=== PATIENT | male | born 1960 | race Caucasian/White ===

== ENCOUNTER 2020-03-03 22:06 | Inpatient (IN) | payer OTHER, SELFPAY ==
[~2020-03-03] VITALS: Ht 167.6 cm; Wt 86.2 kg
--- NOTE | 2020-03-03 22:11 | NUR ---
BIBA TO BED 10
--- NOTE | 2020-03-03 22:15 | NUR ---
RECEIVED A 59/M FROM EMS FOR A MALFUNCTIONING SUPRAPUBIC CATHETER. UPON ASSESSMENT CATHETER IS NOT DRAINING--UNABLE TO FLUSH. PT HAS EXTENSIVE MEDICAL HISTORY AND IS TRACH TO 02 5LP. TRACH INTACT WITH NO COMPLICATIONS.
--- NOTE | 2020-03-03 22:19 | NUR ---
T-piece to o2; setting 6LPM
[2020-03-03 22:20] VITALS: BP 133/83
[2020-03-03] MEDS ORDERED: SODIUM CHLORIDE FLUSH 10 ML SYR IVF ONE (22:45)
--- NOTE | 2020-03-03 22:45 | NUR ---
PER DR FRYE, ATTEMPT REED INSERTION. INSERTION UNSUCCESSFUL. DR FRYE MADE UNSUCCESSFUL ATTEMPT WELL.
[2020-03-03 23:30] LABS: BASOPHILS % (AUTO) 0.5 % (0.0-2.0); EOSINOPHILS # (AUTO) 0.3 K/uL (0-0.4); HEMATOCRIT 45.1 % (36-52); HEMOGLOBIN 14.5 g/dL (12.0-18.0); LYMPHOCYTES # (AUTO) 1.4 K/uL (2.0-11.5); LYMPHOCYTES % (AUTO) 16.3 % (20.5-51.1); MEAN CORPUSCULAR HEMOGLOBIN 29 pg (27-31); MEAN CORPUSCULAR HGB CONC 32 g/dL (33-37); MEAN CORPUSCULAR VOLUME 90.1 fL (80-94); MONOCYTES # (AUTO) 0.8 K/uL (0.8-1.0); MONOCYTES % (AUTO) 9.5 % (1.7-9.3); NEUTROPHILS # (AUTO) 5.9 K/uL (1.8-7.7); NEUTROPHILS % (AUTO) 69.7 % (42.2-75.2); PLATELET COUNT (AUTO) 226 K/uL (140-450); RED BLOOD CELL COUNT(AUTO) 5.01 MIL/uL (4.20-6.10); WHITE BLOOD COUNT (AUTO) 8.5 K/uL (4.8-10.8)
[2020-03-03 23:44] LABS: ALBUMIN 3.3 g/dL (3.4-5.0); ANION GAP 15.2 (8-16); CREATININE 0.9 mg/dL (0.6-1.3); POTASSIUM 4.2 mmol/L (3.5-5.1); PROTHROMBIN TIME 10.6 secs (10.8-13.4); TOTAL BILIRUBIN 0.4 mg/dL (0.0-1.0)
--- NOTE | 2020-03-04 | NUR ---
PT REMAINS IN BED -- NO DISTRESS. ATTATCHED TO CONTINOUS CARDIAC MONITORING.
[2020-03-04] MEDS ORDERED: NACL 0.9% 1,000 ML IV SCH (00:23)
[2020-03-04] MEDS ORDERED: LORazepam 2 MG/ML VIAL IM/IVP PRN (00:25)
[2020-03-04] MEDS ORDERED: DOCUSATE SODIUM 100 MG GELCAP PO PRN (00:25)
[2020-03-04] MEDS ORDERED: ONDANSETRON 4 MG/2 ML VIAL IM/IVP PRN (00:25)
[2020-03-04] MEDS ORDERED: ACETAMINOPHEN 325 MG TAB PO PRN (00:25)
[2020-03-04] MEDS ORDERED: MAG SULF 2000 MG/WATER PREMIX 50 ML IV PRN (00:25)
[2020-03-04] MEDS ORDERED: ZOLPIDEM 5 MG TAB PO PRN (00:25)
[2020-03-04] MEDS ORDERED: MORPHINE SULFATE 2 MG/ML SYR IVP PRN (00:25)
[2020-03-04] MEDS ORDERED: POTASSIUM CHLORIDE 10 MEQ TABER PO PRN (00:25)
[2020-03-04] MEDS ORDERED: HYDROcodone/APAP 5/325 MG 1 TAB TAB PO PRN (00:25)
[2020-03-04] MEDS ORDERED: BACL10TA4 GT (00:46)
[2020-03-04] MEDS ORDERED: CHLO118S1 MT (00:46)
[2020-03-04] MEDS ORDERED: BISA-218 RC (00:46)
[2020-03-04] MEDS ORDERED: MAGN400T7 GT (00:46)
[2020-03-04] MEDS ORDERED: [UNRECOGNIZED DRUG - CODE] GT (00:46)
[2020-03-04] MEDS ORDERED: CHOL2400 GT (00:46)
[2020-03-04] MEDS ORDERED: FISH10005 GT (00:46)
[2020-03-04] MEDS ORDERED: NA P133E RC (00:46)
[2020-03-04] MEDS ORDERED: ASPI-1884 GT (00:46)
[2020-03-04] MEDS ORDERED: MAGN400S60 GT (00:46)
[2020-03-04] MEDS ORDERED: METO25TA GT (00:46)
[2020-03-04] MEDS ORDERED: DOCU-300 GT (00:46)
[2020-03-04] MEDS ORDERED: MULT-1328 GT (00:46)
[2020-03-04] MEDS ORDERED: CALC-1271 GT (00:46)
[2020-03-04] MEDS ORDERED: OMEP40EC14 GT (00:47)
[2020-03-04] MEDS ORDERED: ZINC220C28 GT (00:47)
[2020-03-04] MEDS ORDERED: ACET-2619 GT (00:47)
[2020-03-04] MEDS ORDERED: NUTR887L GT (00:47)
[2020-03-04] MEDS ORDERED: SENN-72 GT (00:47)
[2020-03-04] MEDS ORDERED: SIMV10TA1 GT (00:47)
[2020-03-04] MEDS ORDERED: ASCO-5 GT (00:47)
--- NOTE | 2020-03-04 02:00 | NUR ---
PT REMAINS IN BED WITH NO DISTRESS. IV INFUSING NORMAL SALINE AT ORDERED RATE OF 60ML/HR. IV IS PATENT. ALL NEEDS MET AT THIS TIME.
--- NOTE | 2020-03-04 04:02 | NUR ---
0400 VITALS COMPLETED. PT REMAINS FREE FROM PAIN/DISTRESS. SUPRAPUBIC CATHETER REMAINS INTACT WITH NO OUTPUT. UROLOGY TO CONSULT THIS AM. OTHERWISE IN STABLE CONDITION.
--- NOTE | 2020-03-04 07:05 | NUR ---
TRACH TO COOL MIST ---PT TRACKS WITH EYES MD AT BEDSIDE
--- NOTE | 2020-03-04 07:10 | NUR ---
REPORT TO PREETI CASTILLO. ALL CARE TRANSFERRED.
[2020-03-04 07:16] LABS: BASOPHILS % (AUTO) 0.3 % (0.0-2.0); EOSINOPHILS # (AUTO) 0.2 K/uL (0-0.4); EOSINOPHILS % (AUTO) 2.1 % (0.0-4.0); HEMATOCRIT 48.3 % (36-52); HEMOGLOBIN 15.9 g/dL (12.0-18.0); LYMPHOCYTES # (AUTO) 0.9 K/uL (2.0-11.5); LYMPHOCYTES % (AUTO) 10.5 % (20.5-51.1); MEAN CORPUSCULAR HEMOGLOBIN 30 pg (27-31); MEAN CORPUSCULAR HGB CONC 33 g/dL (33-37); MEAN CORPUSCULAR VOLUME 89.9 fL (80-94); MONOCYTES # (AUTO) 0.7 K/uL (0.8-1.0); MONOCYTES % (AUTO) 7.8 % (1.7-9.3); NEUTROPHILS # (AUTO) 6.9 K/uL (1.8-7.7); NEUTROPHILS % (AUTO) 79.3 % (42.2-75.2); PLATELET COUNT (AUTO) 204 K/uL (140-450); RED BLOOD CELL COUNT(AUTO) 5.37 MIL/uL (4.20-6.10); WHITE BLOOD COUNT (AUTO) 8.7 K/uL (4.8-10.8)
--- NOTE | 2020-03-04 07:34 | NUR ---
covid swab collected
[2020-03-04 07:47] LABS: ANION GAP 11.3 (8-16); CARBON DIOXIDE 27.9 mmol/L (21-32); CHOL/HDL RATIO 3.9 (1-4.5); CREATININE 0.9 mg/dL (0.6-1.3); MAGNESIUM 1.8 mg/dL (1.8-2.4); PHOSPHORUS 3.5 mg/dL (2.5-4.9); POTASSIUM 4.2 mmol/L (3.5-5.1); THYROID STIMULATING HORMONE 1.08 uIU/mL (0.34-3.74)
--- NOTE | 2020-03-04 08:27 | NUR ---
Dr. Powlel is evaluating the patient at bedside.
--- NOTE | 2020-03-04 08:30 | NUR ---
turned to left for midline relief
--- NOTE | 2020-03-04 08:38 | NUR ---
WITH UROLOGY CHANGED SUPRAPUBIC REED 16Fr. AT BEDSIDE WITH NO INCIDENT.
--- NOTE | 2020-03-04 09:40 | NUR ---
pt's Mariia called requesting to speak with her 's doctor [phone]
[2020-03-04] MEDS ORDERED: ACETAMINOPHEN 650 MG/20.3 ML UDC GT PRN (10:25)
[2020-03-04] MEDS ORDERED: bisacodyL 10 MG SUPP RC PRN (10:25)
[2020-03-04] MEDS ORDERED: SODIUM PHOSPHATE 118 ML ENEM RC PRN (10:25)
[2020-03-04] MEDS ORDERED: SENNA 8.6 MG TAB GT PRN (10:25)
[2020-03-04] MEDS ORDERED: MAGNESIUM HYDROXIDE 2400 MG/30 ML UDC GT PRN (10:25)
[2020-03-04 11:00] VITALS: BP 134/82
[2020-03-04] MEDS ORDERED: DOCUSATE 100 MG/10 ML UDC PO PRN (11:15)
--- NOTE | 2020-03-04 11:53 | NUR ---
report given to Maciel BLEVINS
--- NOTE | 2020-03-04 12:06 | NUR ---
1200ml urine out emptied larry bag---report given to ems
--- NOTE | 2020-03-04 12:08 | NUR ---
Patient to be transferred to [facility]. Is being transferred due to . Receiving facility has accepting physician and available space. ER physician has signed transfer form. Patient or responsible republican has agreed to transfer and signed form. Patient belongings inventoried and will be sent with patient. Copy of nursing notes, lab reports, EKG, Physicians Orders and X-rays to be sent with patient. Report called to at receiving facility. ambulance service has been called for transfer. ETA is .
[2020-03-04] MEDS ORDERED: VITAMIN D3 GT SCH (13:00)
[2020-03-04] MEDS ORDERED: CALCIUM CARB/VIT-D 500 MG/200 IU 1 TAB PO SCH (13:00)
[2020-03-04] MEDS ORDERED: CALCIUM CITRATE GT SCH (13:00)
[2020-03-04] MEDS ORDERED: BACLOFEN 10 MG TAB GT SCH (13:00)
[2020-03-04] MEDS ORDERED: DOCUSATE 100 MG/10 ML UDC PO SCH (21:00)
[2020-03-04] MEDS ORDERED: METOPROLOL 25 MG TAB GT SCH (21:00)
[2020-03-04] MEDS ORDERED: CHLORHEXIDINE GLUCONATE MT SCH (21:00)
[2020-03-04] MEDS ORDERED: SIMVASTATIN 10 MG TAB GT SCH (21:00)
[2020-03-04] MEDS ORDERED: NON-FORMULARY ITEM (Amino Acids/Protein Hydrolys (Pro-Stat Sugar Free Liquid) 30 ML) GT SCH (21:00)
[2020-03-05] MEDS ORDERED: LANSOPRAZOLE 30 MG CAPDR GT SCH (06:30)
[2020-03-05 08:09] LABS: T4 (THYROXINE) 9.5 ug/dL (4.5-12.0)
[2020-03-05] MEDS ORDERED: ASCORBIC ACID 500 MG TAB GT SCH (09:00)
[2020-03-05] MEDS ORDERED: OMEGA GT SCH (09:00)
[2020-03-05] MEDS ORDERED: CHOLECALCIFEROL U GT SCH (09:00)
[2020-03-05] MEDS ORDERED: NON-FORMULARY ITEM (Multivitamin with Minerals (Multivitamins with Minerals) 1 TAB) GT SCH (09:00)
[2020-03-05] MEDS ORDERED: ASPIRIN 81 MG TAB.CHEW GT SCH (09:00)
[2020-03-05] MEDS ORDERED: ZINC SULF 220 MG CAP GT SCH (09:00)
[2020-03-05] MEDS ORDERED: FATTY ACIDS GT SCH (09:00)
[2020-03-05] MEDS ORDERED: NON-FORMULARY ITEM (Omeprazole 1 CAP) GT SCH (09:00)
[2020-03-05] MEDS ORDERED: MAGNESIUM OXIDE 400 MG TAB GT SCH (09:00)
[2020-03-05] MEDS ORDERED: MULTIVITAMIN/MINERALS 1 TAB GT SCH (09:00)
[2020-03-05] MEDS ORDERED: FISH OIL GT SCH (09:00)
[2020-03-05] MEDS ORDERED: CHOLECALCIFEROL 1,000 IU TAB GT SCH (09:00)
== END 2020-03-04 12:05 | DRG 468 ==
LOC: MED 22:06 → MTU 03-04 00:36
PROC: 0TPB70Z Removal of Drainage Device from Bladder, Via Natural or Artificial Opening (ICD-10-PCS; principal; 2020-03-04)
PROC: 0T9B70Z Drainage of Bladder with Drainage Device, Via Natural or Artificial Opening (ICD-10-PCS; 2020-03-04)
DX: N13.9 Obstructive and reflux uropathy, unspecified (principal); L89.154 Pressure ulcer of sacral region, stage 4; G82.50 Quadriplegia, unspecified; N31.2 Flaccid neuropathic bladder, not elsewhere classified; J96.10 Chronic respiratory failure, unspecified whether with hypoxia or hypercapnia; G93.1 Anoxic brain damage, not elsewhere classified; N17.0 Acute kidney failure with tubular necrosis; E86.0 Dehydration; Z20.828 Contact with and (suspected) exposure to other viral communicable diseases
CPT/HCPCS: 36415; 71045; 80048; 80053; 82150; 83036; 83690; 83735; 83880; 84100; 84436; 84443; 84484; 85025; 85610; 85730; 99285; J1644; Q0092; U0003-CS

== ENCOUNTER 2021-08-10 13:37 | Inpatient (IN) | payer MEDICAID, SELFPAY ==
[~2021-08-10] VITALS: Ht 172.7 cm; Wt 95.3 kg
[2021-08-10] MEDS: NACL 0.9% 1,000 ML IV SCH (00:59)
[~2021-08-10 13:37] MED LIST: ACET-2619 GT; ASCO-5 GT; ASPI-1749 GT; BACL10TA4 GT; BISA-218 RC; CALC-1271 GT; CHLO118S1 MT; CHOL2400 GT; DOCU-300 GT; FISH10005 GT; MAGN400S60 GT; MAGN400T7 GT; METO25TA GT; MULT-1328 GT; NA P133E RC; NUTR887L GT; OMEP40EC23 GT; SENN-72 GT; SIMV10TA1 GT; ZINC220C28 GT; [UNRECOGNIZED DRUG - CODE] GT
--- NOTE | 2021-08-10 13:59 | NUR ---
BIBA TO ER BED 11
[2021-08-10 14:04] VITALS: BP 93/62
[2021-08-10] MEDS ORDERED: NACL 0.9% 1,000 ML IV SCH (14:20)
[2021-08-10 14:54] LABS: BASOPHILS # (AUTO) 0.1 K/uL (0.00-0.22); BASOPHILS % (AUTO) 1.6 % (0.0-2.0); EOSINOPHILS % (AUTO) 0.1 % (0.0-4.0); HEMATOCRIT 47.3 % (36-52); HEMOGLOBIN 15.8 g/dL (12.0-18.0); LYMPHOCYTES # (AUTO) 0.3 K/uL (2.0-11.5); LYMPHOCYTES % (AUTO) 6.2 % (20.5-51.1); MEAN CORPUSCULAR HEMOGLOBIN 29 pg (27-31); MEAN CORPUSCULAR HGB CONC 33 g/dL (33-37); MEAN CORPUSCULAR VOLUME 87.6 fL (80-94); MONOCYTES # (AUTO) 0.3 K/uL (0.8-1.0); MONOCYTES % (AUTO) 7.2 % (1.7-9.3); NEUTROPHILS # (AUTO) 3.6 K/uL (1.8-7.7); NEUTROPHILS % (AUTO) 84.9 % (42.2-75.2); PLATELET COUNT (AUTO) 99 K/uL (140-450); RED CELL DISTRIBUTION WIDTH 15.9 % (11.6-13.7); WHITE BLOOD COUNT (AUTO) 4.3 K/uL (4.8-10.8)
--- NOTE | 2021-08-10 15:01 | NUR ---
61 Y MALE BIBA FROM [facility] DUE TO ELEVATED HR AND TACHYPNEA. PER EMS PT HR UPON ARRIVAL WAS AROUND 150. PMH: RESP FAILURE, ANOXIC BRAIN DAMAGE, DM, HTN, HLD, QUADRIPLEGIA ALLERGIES: SEE LIST
[2021-08-10 15:25] LABS: ALBUMIN 2.7 g/dL (3.4-5.0); ANION GAP 15.1 (8-16); CARBON DIOXIDE 23.9 mmol/L (21-32); CREATININE 0.8 mg/dL (0.6-1.3); TOTAL BILIRUBIN 0.5 mg/dL (0.0-1.0)
[2021-08-10] MEDS ORDERED: NACL 0.9% 1,000 ML IV ONE (15:35)
[2021-08-10] MEDS ORDERED: GENTAMICIN 120 MG in DEXTROSE 5% 100 ML IV ONE (16:10)
[2021-08-10] MEDS ORDERED: GENTAMICIN 80 MG/2 ML VIAL ONE (16:30)
--- NOTE | 2021-08-10 16:40 | NUR ---
PT RESTING IN BED, VISIBLE EQUAL RISE AND FALL OF CHEST, VSS, WILL CONTINUE TO MONITOR.
--- NOTE | 2021-08-10 17:50 | NUR ---
OBTAINED CT CONSENT, PLACED IN PT CHART.
--- NOTE | 2021-08-10 18:57 | NUR ---
PT RESTING IN BED, VSS, WILL CONTINUE TO MONITOR.
--- NOTE | 2021-08-10 19:28 | NUR ---
GAVE REPORT TO PREETI GARCIA. TRANSFER OF CARE AT THIS TIME.
--- NOTE | 2021-08-10 20:10 | NUR ---
GAVE PERMISSION FOR TREATMENT AND ADMISSION, PREETI COREAS AND CASIE GIVEN VERBAL OVER THE PHONE.
--- NOTE | 2021-08-10 20:28 | NUR ---
PT RETURN FROM CT
--- NOTE | 2021-08-10 20:50 | NUR ---
pt suctioned at this time. minimal bloody exudates at this time. VSS on 4lpm humidifier
[2021-08-10] MEDS ORDERED: ACETAMINOPHEN 325 MG TAB PO PRN (21:45)
[2021-08-10] MEDS ORDERED: guaiFENesin DM 200/20 MG-10 ML 10 ML UDC PO PRN (21:45)
[2021-08-10] MEDS ORDERED: ZOLPIDEM 5 MG TAB PO PRN (21:45)
[2021-08-10] MEDS ORDERED: DOCUSATE SODIUM 100 MG GELCAP PO PRN (21:45)
[2021-08-10] MEDS ORDERED: ONDANSETRON 4 MG/2 ML VIAL IM/IVP PRN (21:45)
[2021-08-10] MEDS ORDERED: POTASSIUM CHLORIDE 10 MEQ TABER PO PRN (21:45)
[2021-08-10] MEDS ORDERED: GENTAMICIN PER PHARMACY MC PRN (21:50)
[2021-08-10 23:36] LABS: CHOL/HDL RATIO 2.8 (1-4.5); FREE T4 (FREE THYROXINE) 0.96 ng/dL (0.76-1.46); MAGNESIUM 1.7 mg/dL (1.8-2.4); THYROID STIMULATING HORMONE 0.95 uIU/mL (0.34-3.74)
[2021-08-10 23:39] LABS: PROTHROMBIN TIME 10.4 secs (10.8-13.4)
--- NOTE | 2021-08-10 23:39 | NUR ---
NAD at this time. remains on 4lmp TBAR with humidifier.
[2021-08-11] MEDS: GENTAMICIN 120 MG in DEXTROSE 5% 100 ML IV SCH ×4 (00:59→21:04)
--- NOTE | 2021-08-11 02:38 | NUR ---
NAd at this time. RT at bedside for routine care.
--- NOTE | 2021-08-11 04:52 | NUR ---
provided cooling measures such as ice packs for patient. patient tolerating well.
[2021-08-11 07:07] LABS: BASOPHILS # (AUTO) 0.2 K/uL (0.00-0.22); HEMATOCRIT 45.7 % (36-52); HEMOGLOBIN 15.2 g/dL (12.0-18.0); LYMPHOCYTES # (AUTO) 0.4 K/uL (2.0-11.5); LYMPHOCYTES % (AUTO) 12.6 % (20.5-51.1); MEAN CORPUSCULAR HEMOGLOBIN 29 pg (27-31); MEAN CORPUSCULAR HGB CONC 33 g/dL (33-37); MEAN CORPUSCULAR VOLUME 87.7 fL (80-94); MONOCYTES # (AUTO) 0.3 K/uL (0.8-1.0); MONOCYTES % (AUTO) 9.6 % (1.7-9.3); NEUTROPHILS # (AUTO) 2.2 K/uL (1.8-7.7); NEUTROPHILS % (AUTO) 71.8 % (42.2-75.2); PLATELET COUNT (AUTO) 83 K/uL (140-450); RED BLOOD CELL COUNT(AUTO) 5.21 MIL/uL (4.20-6.10); RED CELL DISTRIBUTION WIDTH 15.7 % (11.6-13.7); WHITE BLOOD COUNT (AUTO) 3.1 K/uL (4.8-10.8)
--- NOTE | 2021-08-11 07:22 | NUR ---
Report and continuation of care received from PREETI Abel.
--- NOTE | 2021-08-11 07:22 | NUR ---
REPORT GIVEN TO PAT ÁLVAREZ
--- NOTE | 2021-08-11 07:40 | NUR ---
Rectal temperature 102.9. Patient with two large bowel movements; teo care performed; diaper changed. Tylenol suppository 650mg given.
[2021-08-11 07:48] LABS: ANION GAP 16.4 (8-16); CARBON DIOXIDE 20.3 mmol/L (21-32); CREATININE 0.8 mg/dL (0.6-1.3); POTASSIUM 4.7 mmol/L (3.5-5.1)
[2021-08-11] MEDS: ACETAMINOPHEN 650 MG SUPP RC PRN (07:57)
--- NOTE | 2021-08-11 07:59 | NUR ---
Called Abril for report, states recontact in 15 minutes
--- NOTE | 2021-08-11 07:59 | NUR ---
Edilberto junior in [facility] - 08/11/21 at 0759 by [email or web address] Emelyn Gomes for report, states to give 15minutes at this time.
--- NOTE | 2021-08-11 08:30 | NUR ---
Abril made aware of repeat rectal temperature 101.7, AccuChek 171
--- NOTE | 2021-08-11 08:40 | NUR ---
Patient will be admitted to care of Dr. Fried. Admited to Telemetry. Will go to room 106A. Belongings list completed. Report to PREETI Samuels.
[2021-08-11 08:45] VITALS: BP 119/71
--- NOTE | 2021-08-11 08:45 | NUR ---
PT BROUGHT ONTO UNIT VIA GURNEY, ACCOMPANIED BY ER STAFF AND TRANSPORTER. PT IN NONVERBAL, HOWEVER, EYES WILL TRAC AND OPEN SPONTANEOUSLY. PT HAS TRACH TO T BAR IN PLACE. WITH 02 @ 6L. 02 SAT AT 98%. PT HAS G TUBE IN PLACE. PT RECEIVES MEDS AND NOURISHMENT VIA G TUBE. PT HAS IV TO L AC, 20G. INFUSING NS @ 60. SKIN IS WARM AND DRY. PT WAS ADMITTED WITH A RECTAL TEMPT OF 101.9 FROM ER. COOLING MEASURES IN PLACE. PT HAS SACRAL WOUND. CALL LIGHT WITHIN REACH. ALL SAFETY MEASURES IN PLACE. WILL CONTINUE TO MONITOR.
--- NOTE | 2021-08-11 08:45 | NUR ---
Patient's Plan of Care was discussed and reviewed with STEREOTYPER APPRENTICE: FANI DE LA TORRE
[2021-08-11] MEDS: ASPIRIN 81 MG TAB.CHEW GT SCH ×2 (09:00→21:00)
[2021-08-11] MEDS: METOPROLOL 25 MG TAB GT SCH ×2 (09:00→21:04)
[2021-08-11] MEDS: PANTOPRAZOLE 40 MG TABEC PO SCH (09:00)
--- NOTE | 2021-08-11 09:15 | NUR ---
RE-ASSESSED PT TEMPT. CURRENT TEMPT 100.3. CONTINUE WITH COOLING MEASURES.
--- NOTE | 2021-08-11 11:38 | NUR ---
REVIEWED PULMONARY STATUS WITH DR. BUCKY CASTILLO: DUONEB HHN Q6 AND Q4PRN FOR SOB/WHEEZE; OXYGEN SATURATION GREATER THAN 90%; SPUTUM CULTURE C&S
[2021-08-11 12:00] VITALS: BP 109/73
[2021-08-11] MEDS ORDERED: ALBUTEROL SULFATE/IPRATROPIU 3 ML SOL IH PRN (12:45)
[2021-08-11] MEDS: ALBUTEROL SULFATE/IPRATROPIU 3 ML SOL IH SCH ×2 (13:16→19:16)
--- NOTE | 2021-08-11 13:16 | NUR ---
PLACED PATIENT ON A COOL AEROSOL AT AN FIO2 OF 35%/8 LPM TO AN INLINE SUCTION CATHETER/TRACHEOSTOMY TUBE GOOD CHEST RISE DEEP TRACHEAL SUCTION FOR COPIOUS THICK YELLOW WITH BLOOD TINGE SECRETIONS SPUTUM SAMPLE OBTAINED FORWARDED TO LAB FANI/DOMINICK NOTIFIED OF COL AEROSOL FIO2 AND COLLECTION OF SPUTUM SAMPLE
--- NOTE | 2021-08-11 13:20 | NUR ---
DID ROUNDS ON PT. PT IN BED SLEEPING AT THIS TIME. RESPIRATIONS ARE EVEN AND UNLABORED. PT CONTINUES ON 6L 02, WITH 02 SAT AT 97%. NO SIGNS OF DISTRESS NOTED. CALL LIGHT WITHIN REACH. ALL SAFETY MEASURES IN PLACE. WILL CONTINUE TO MONITOR.
--- NOTE | 2021-08-11 13:30 | NUR ---
OSVALDO IV MEDICATION ADMINISTERED PER MD ORDER.
[2021-08-11] MEDS: NACL 0.9% 1,000 ML IV SCH (14:33)
[2021-08-11 16:00] VITALS: BP 128/70
--- NOTE | 2021-08-11 16:09 | NUR ---
RECEIVED RECOMMENDATION FROM DIETITIAN. VITAL @60ML/HR. START WITH 20ML/HR AND INCREASE BY 20Q4H. WATER FLUSH AT 100Q6H. WILL BEGIN GT FEEDING. WILL CONTINUE TO MONITOR.
--- NOTE | 2021-08-11 16:27 | NUR ---
PATIENT HAS BEEN SCREENED AND CATEGORIZED HIGH NUTRITION RISK. PATIENT WILL BE SEEN WITHIN 1-2 DAYS OF ADMISSION. RECEIVED CONSULT AND REFERRAL FOR TUBE FEEDING [address]
--- NOTE | 2021-08-11 17:10 | NUR ---
G TUBE FEEDING STARTED. PER DIETARY RECOMMENDATION, VITAL AF @ 60ML/HR WITH H20 FLUSH AT 100 Q6H. START FEEDING AT 20 ML/HR AND INCREASE BY 20ML/HR Q4H.
--- NOTE | 2021-08-11 19:00 | NUR ---
PT IN BED RESTING AT THIS TIME. PT ON TRACH TO T BAR, 6L. WITH 02 SAT AT 95%. NO SIGNS OF DISTRESS NOTED. PT HAS G TUBE IN PLACE, G TUBE INTACT AND PATENT. PT TOLERATING GT FEEDING WELL. NO SIGNS OF PAIN OR DISCOMFORT. ALL NEEDS MET THROUGHOUT SHIFT. PT IS STABLE. WILL ENDORSE TO MERCERIZING RANGE FEEDER NURSE.
--- NOTE | 2021-08-11 19:20 | NUR ---
RECEIVED PT REPORT FROM AM NURSE FOR CONTINUITY OF CARE. PT ON TRACH TO T BAR 6L O2 . O2 SAT 95% NO S/S OF DISTRESS NOTED. PT HAS G-TUBE IN PLACE, INTACT NO RESIDUAL. G-TUBE FEEDING VITAL AF RUNNING AT 20CC/HR. PT TOLERATING G-TUBE FEEDING WELL.. TURNED AND REPOSITIONED Q2HRS PER PROTOCOL. NO SIGNS OF DISTRESS OR DISCOMFORT. ALL NEEDS MET.. PT IS STABLE.
[2021-08-11] MEDS: SIMVASTATIN 10 MG TAB GT SCH (21:04)
--- NOTE | 2021-08-11 21:20 | NUR ---
HS MEDS GIVEN VIA G-TUBE. TOLERATED WELL. GENTAMYCIN IVPB HUNG INFUSING INTO LAC 20G IV. 0.9NS IVF RUNNING AT 60CC/HR PER MD ORDER. SUCTIONED TRACH OF MUCUS PLUG. TURNED AND REPOSITIONED. ALL SAFETY MEASURES IN PLACE. CONTINUE TO OBSERVE.
--- NOTE | 2021-08-11 21:25 | NUR ---
2100 HEPARIN NOT GIVEN PLATELET COUNT 83 TOO LOW.
[2021-08-11] MEDS ORDERED: VANCOMYCIN PER PHARMACY MC PRN (22:20)
[2021-08-11] MEDS: MEROPENEM 1,000 MG in NACL 0.9% 50 ML IV SCH (22:45)
--- NOTE | 2021-08-11 23:45 | NUR ---
MERREM IVPB NOT AVAIABLE.
[2021-08-12] MEDS ORDERED: VANCOMYCIN 1GM/DEXT 5% PREMIX 200 ML IV SCH
[2021-08-12] MEDS: ALBUTEROL SULFATE/IPRATROPIU 3 ML SOL IH SCH ×4 (01:09→20:30)
--- NOTE | 2021-08-12 01:24 | NUR ---
0100 INLINE HHNTX GIVEN. TRACH CARE DONE. WATER CHANGED. PT IS ON 35% COOL AEROSOL
[2021-08-12] MEDS ORDERED: MEROPENEM 1,000 MG VIAL IV ONE (05:47)
[2021-08-12 06:22] LABS: BASOPHILS % (AUTO) 0.4 % (0.0-2.0); HEMATOCRIT 42.8 % (36-52); HEMOGLOBIN 14.3 g/dL (12.0-18.0); LYMPHOCYTES # (AUTO) 0.7 K/uL (2.0-11.5); LYMPHOCYTES % (AUTO) 17.4 % (20.5-51.1); MEAN CORPUSCULAR HEMOGLOBIN 29 pg (27-31); MEAN CORPUSCULAR HGB CONC 33 g/dL (33-37); MEAN CORPUSCULAR VOLUME 87.7 fL (80-94); MONOCYTES # (AUTO) 0.4 K/uL (0.8-1.0); MONOCYTES % (AUTO) 10.1 % (1.7-9.3); NEUTROPHILS # (AUTO) 2.7 K/uL (1.8-7.7); NEUTROPHILS % (AUTO) 72.1 % (42.2-75.2); PLATELET COUNT (AUTO) 79 K/uL (140-450); RED BLOOD CELL COUNT(AUTO) 4.88 MIL/uL (4.20-6.10); RED CELL DISTRIBUTION WIDTH 15.4 % (11.6-13.7); WHITE BLOOD COUNT (AUTO) 3.8 K/uL (4.8-10.8)
--- NOTE | 2021-08-12 06:40 | NUR ---
PT'S HR [address] TO ATRIAL FIB TO 2:[address] BROWN CALLED. TORB TRANSFER PT TO ICU AND START HGIM ON KARIN MAURICIO. CHRISTINA BOND RUNNER RN AWARE. NO ICU BED AVAILABLE. O6:[address] BROWN BACK INFORMED HIM OF SITUATION. DR BROWN ORDERED TATAL 20MG CARDIZEM IVP CHECK BACK WITH HIM IF HR DOESN'T COME DOWN.
--- NOTE | 2021-08-12 06:45 | NUR ---
PT GIVEN CARDIAZEM SLOW IVP. ALSO CARDIOLOGY CONSULT ORDERED WITH DR JOSEPH MURRAY.
[2021-08-12] MEDS ORDERED: DILTIAZEM 25 MG/5 ML VIAL IVP ONE (06:49)
[2021-08-12] MEDS ORDERED: DILTIAZEM 25 MG/5 ML VIAL IVP SCH ×2 (06:50→07:28)
[2021-08-12] MEDS: NACL 0.9% 1,000 ML IV SCH (07:00)
--- NOTE | 2021-08-12 07:00 | NUR ---
PT'S HR DROPPED FROM THE 180'S DOWN TO 115TO 120'S AVERAGING 126. DR BROWN AWARE. ORDERED 5MG METROPALOL IVP Q 6HRS PRN HR> 130'S. TRIED TO PUT ORDER IN COMPUTER. FEPT GETTING THIS MED NOT IN STOCK. CALLED PHARMACY TO FOLLOW UP. PHARMACIST COULD NOT GIVE A TIME TO EXPECT MED. DUE TO SHORTAGE OF MANY MEDICINES FROM [facility]. ALL SAFETY MEASURES IN PLACE. ENDORSE TO DAY SHIFT TO FOLLOW UP.
--- NOTE | 2021-08-12 07:02 | NUR ---
SATURATION 89% ON A COOL AEROSOL TO TRACH AT 35% POST HHN THERAPY INCREASED FIO2 TO40% DEEP TRACHEAL SUCTION FOR MODERATE THIN YELLOW SECRETIONS WITH SMALL SCATTERED BLOOD CLOTS
--- NOTE | 2021-08-12 07:20 | NUR ---
REWCEIVED ENDORSEMENT FROM FOREIGN LANGUAGE INSTRUCTOR NURSE.
[2021-08-12 07:24] LABS: ANION GAP 14.1 (8-16); CARBON DIOXIDE 21.5 mmol/L (21-32); CREATININE 0.8 mg/dL (0.6-1.3); POTASSIUM 3.6 mmol/L (3.5-5.1)
[2021-08-12] MEDS: MEROPENEM 1,000 MG in NACL 0.9% 50 ML IV SCH ×3 (07:30→21:09)
--- NOTE | 2021-08-12 08:00 | NUR ---
Patient's Plan of Care was discussed and reviewed with PARKS WORKER: MARGARETH BORJAS
[2021-08-12 08:59] VITALS: BP 187/108
[2021-08-12 09:07] LABS: T4 (THYROXINE) 7.2 ug/dL (4.5-12.0)
--- NOTE | 2021-08-12 09:35 | NUR ---
WOUND CARE EVALUATION NOTE: SKIN ASSESSMENT DONE WITH THIS 61 Y/O PT ADMITTED TO [facility] WITH INITIAL DX OF TACHYCARDIA AND UTI . PAST MEDICAL HISTORY: CVA, CHRONIC UTI, OBSTRUCTIVE UROPATHY, CHRONIC RESPIRATORY FAILURE, DYSPHAGIA AND DIABETES. ALL ABOVE INFORMATION OBTAINED FROM ADMISSION H&P. PT. ADMITTED WITH PRESSURE INJURY TO SACRALCOCCYX AND NOTED ON THE INTER-FACILITY TRANSFER REPORT. PT IS AWAKE, NON-VERBAL, SKIN IS COLD AND DRY TO TOUCH PT. WITH FEVER AND COOLING MEASURES IN PLACE. CHRONIC. SUPRAPUBIC CATH WITH SEB COLOR URINE OUTPUT. PT. WITH LARGE SOFT BM. BILATERAL DORSAL PEDAL PULSES PRESENT AND NORMAL, THICKEN FUNGAL NAILS OBSERVED. INTEGUMENTARY: -SUPRAPUBIC CATH BARTOLO-STOMA SKIN DRY AND INTACT -GT SITE BARTOLO-STOMA SKIN DRY AND INTACT -SACRALCOCCYX PRESSURE INJURY STAGE 4 WITH [id number]. WOUND BED PINK, 90% GRANULATING, 10% YELLOW SLOUGH, MINIMAL SEROUS DRAINAGE, NO ODOR. BARTOLO-WOUND HEALING THIN SCAR TISSUE WITH MULTIPLE EROSIONS AND DTI THE ENTIRE AFFECTED AREA [id number] RECOMMENDATIONS: -WOUND CULTURE TO SACRALCOCCYX -CLEANSE SACRALCOCCYX WOUND WITH NS AND GAUZE, PAT DRY, APPLY THERAHONEY GEL TO WOUND BED WITH ADAPTIC DRESSING AND APPLY THIN LAYER OF Z GUARD TO BARTOLO-WOUND SKIN COVER WITH ISLAND DRESSING Q DAY AND PRN WITH SOILING. -APPLY SKIN PREP TO BILATERAL HEELS AND WOODS SUPERINTENDENT -APPLY HEEL PROTECTOR TO BOTH HEELS -OFFLOAD BILATERAL HEELS BY PLACING PILLOWS UNDER CALVES UNLESS OTHERWISE CONTRAINDICATED -PRESSURE REDISTRIBUTION SURFACE THERAPY -TURN AND REPOSITION Q2H, OFFLOAD SACRALCOCCYX BY TURNING RIGHT AND LEFT -CONTINUE TO FOLLOW RD RECOMMENDATIONS
[2021-08-12] MEDS: PANTOPRAZOLE 40 MG TABEC PO SCH (10:09)
[2021-08-12] MEDS: ASPIRIN 81 MG TAB.CHEW GT SCH (10:09)
[2021-08-12] MEDS: METOPROLOL 25 MG TAB GT SCH (10:09)
--- NOTE | 2021-08-12 10:16 | NUR ---
GIVEN GT MEDICATION ORDER TOLERATED WELL BLOOD PRESSURE IS 121/76 AND HR 117. O2 SAT AT 90 TO 92%
[2021-08-12] MEDS: VANCOMYCIN HCL 1.25 GM in DEXTROSE 5% 250 ML IV SCH ×2 (10:20→21:09)
--- NOTE | 2021-08-12 10:29 | NUR ---
LEFT MESSAGE TO DR. LYN COVERING FOR DR. BROWN THAT METOPROLOL IVP 5 MG PRN IS OUT OF STOCK
[2021-08-12 12:00] VITALS: BP 121/68
--- NOTE | 2021-08-12 12:12 | NUR ---
08/12/21 RD INITIAL ASSESSMENT COMPLETED PLEASE REFER TO NUTRITION ASSESSMENT UNDER CARE ACTIVITY FOR ESTIMATED NUTRITIONAL NEEDS. 1. RECOMMENDED VITAL AF 1.2 @ 60 ML/HR -WATER FLUSH: 100 ML Q6H -START WITH 20 ML/HR AND INCREASE BY 20 ML Q4H -RECOMMENDED NAYE BID PER PROTOCOL -WITH NAYE BID, PT WILL RECEIVE 1888 KCAL AND 113 GM PROTEIN MEETING 90% ESTIMATED KCAL AND 100% ESTIMATED PROTEIN NEEDS 2. MONITOR FOR EDEMA 3. RD TO FOLLOW-UP 3-5 DAYS, MODERATE RISK (DOWNGRADED D/T PT TOLERATING TF) [address]
--- NOTE | 2021-08-12 12:30 | NUR ---
PT GIVEN COOLING MEASURE FOR [id number] EFFECTIVE AFTER 15 MIN TEMP 98.8
[2021-08-12] MEDS: THERAHONEY GEL 42.5 GM TP SCH (13:00)
[2021-08-12] MEDS: Z-GUARD PASTE TP SCH (13:00)
--- NOTE | 2021-08-12 14:18 | NUR ---
CALLED AND ASKING HOW THE AND ALSO ASKING IF DR. BROWN OR DR. LYN CAN UPDATE HIS BROTHER CHRISTIAN VILLARREAL LEFT MESSAGE TO DR. LYN.
[2021-08-12] MEDS ORDERED: POTASSIUM CHLORIDE 20% 40 MEQ/15 ML UDC GT SCH (15:06)
[2021-08-12] MEDS ORDERED: MAG SULF 2000 MG/WATER PREMIX 50 ML IV SCH (15:30)
[2021-08-12] MEDS: DILTIAZEM 30 MG TAB PO SCH ×2 (15:39→21:10)
[2021-08-12 16:00] VITALS: BP 114/66
[2021-08-12] MEDS: ACETAMINOPHEN 650 MG SUPP RC PRN (17:19)
--- NOTE | 2021-08-12 17:20 | NUR ---
TYLENOL SUPPOSITORY GIVEN FOR TEMP. 101.7 AND COOLING MEASURE ALSO GIVEN.
--- NOTE | 2021-08-12 17:30 | NUR ---
INFORM REGARDING PT TEMPERATURE WHEN HE ASSES PT.
--- NOTE | 2021-08-12 18:37 | NUR ---
PT RECHECKED TEMPERATURE AND ITS 99.1
--- NOTE | 2021-08-12 19:31 | NUR ---
PT ON STABLE CONDITION ENDORSE TO HOSPITAL MEDICAL ASSISTANT NURSE FOR CONTINUITY OF CARE.
--- NOTE | 2021-08-12 19:35 | NUR ---
RECEIVED ENDORSEMENT FROM ACID CONDENSER NURSE FOR CONTINUITY OF CARE. PT APHASIC, ON TRACH TO T BAR, 6L02 SATTING AT 91%.IV ON L AC RUNNING NS AT 60MLS/HR IN FUSING WELL. PT ON SUPRAPUBIC CATHETER DRAINING CLEAR YELLOW URINE.ALL PRECAUTIONS IN PLACE. WILL CONTINUE TO MONITOR.
[2021-08-12 20:00] VITALS: BP 129/65
--- NOTE | 2021-08-12 20:30 | NUR ---
PT PRESENTS LAYING IN BED TACHYPNEIC RR OF 36 CURRENT SATURATION 91% ON 10LPM 40% FIO2 COOL AEROSOL T-PIECE PT TOLERATED HHN TX. DEEP TRACHEAL SUCTION FOR SMALL THICK RED/YELLOW. NO DISTRESS NOTED WILL CONTINUE TO MONITOR.
[2021-08-12] MEDS ORDERED: DILTIAZEM 30 MG TAB PO SCH (21:00)
--- NOTE | 2021-08-12 21:00 | NUR ---
DUE MEDICATIONS GIVEN.PT TOLERATED WELL. NO DISTRESS NOTED. WILL CONTINUE TO MONITOR.
[2021-08-12] MEDS: SIMVASTATIN 10 MG TAB GT SCH (21:08)
--- NOTE | 2021-08-12 22:47 | NUR ---
PT SUCTIONED MODERATE AMOUNT OF THICK REDDISH SECRETIONS. O2 SAT AT 90%. ALL PRECAUTIONS IN PLACE. WILL CONTINUE TO MONITOR.
[2021-08-13] VITALS: BP 112/54
[2021-08-13] MEDS: NACL 0.9% 1,000 ML IV SCH ×2 (00:39→16:28)
[2021-08-13] MEDS: ALBUTEROL SULFATE/IPRATROPIU 3 ML SOL IH SCH ×4 (01:00→19:42)
--- NOTE | 2021-08-13 01:10 | NUR ---
IVF CHANGED. PT TACHYCARDIC HR AT 117. O2 SAT AT 90%. PT NOT IN ANY DISTRESS. ALL PRECAUTIONS IN PLACE. WILL CONTINUE TO MONITOR.
--- NOTE | 2021-08-13 03:30 | NUR ---
PT ASLEEP. NO S/SX OF DISTRESS NOTED. ALL PRECAUTIONS IN PLACE. WILL CONTINUE TO MONITOR.
[2021-08-13 04:00] VITALS: BP 114/59
--- NOTE | 2021-08-13 04:30 | NUR ---
SCHEDULED MEDICATIONS GIVEN.NO DISTRESS NOTED. ALL PRECAUTIONS IN PLACE.WILL CONTINUE TO MONITOR.
[2021-08-13] MEDS: MEROPENEM 1,000 MG in NACL 0.9% 50 ML IV SCH ×3 (04:32→21:17)
[2021-08-13] MEDS: DILTIAZEM 30 MG TAB PO SCH ×3 (04:32→21:17)
[2021-08-13] MEDS ORDERED: POTASSIUM CHLORIDE 20% 40 MEQ/15 ML UDC GT PRN (05:00)
--- NOTE | 2021-08-13 05:23 | NUR ---
RESPONDED TO CALL FROM RN PT DESAT TO 87% AND PRESENTS WITH INCREASE WOB. TITRATED COOL AEROSOL 12 LPM FIO2 60%. SX MOD RED THICK SECRETIONS. GAVE HHN TX FOR WOB. SATS INCREASED TO 91%. WILL CONTINUE TO MONITOR.
--- NOTE | 2021-08-13 06:22 | NUR ---
PT IS STABLE.NO ACUTE EVENTS THROUGHOUT THE NIGHT. ALL NEEDS ATTENDED. NO S/SX OF DISTRESS. ALL PRECAUTIONS IN PLACE.CALL LIGHT WITHIN REACH. WILL ENDORSE TO AM SHIFT NURSE.
--- NOTE | 2021-08-13 07:26 | NUR ---
ENDORSED PT TO AM SHIFT NURSE FOR CONTINUITY OF CARE. PT IS STABLE.
--- NOTE | 2021-08-13 07:27 | NUR ---
RECEIVED REPORT FROM IN HOME BABY SITTER NURSE FOR CONTINUTIY OF CARE. PT IS IN BED RESTING AT THIS TIME. RESPIRATIONS ARE EVEN AND UNLABORED. PT IS TRACH TO T BAR AT 12L02. WITH 02 SAT AT 92%. NO SIGNS OF DISTRESS NOTED. NO SIGNS OF PAIN OR DISCOMFORT NOTED. PT IS TACHYCARDIC AT THIS TIME, HR IS 112. WILL CONTINUE TO MONITOR. CALL LIGHT WITHIN REACH. ALL SAFETY MEASURES IN PLACE.
[2021-08-13 07:56] LABS: ANION GAP 15.5 (8-16); CARBON DIOXIDE 21.9 mmol/L (21-32); POTASSIUM 3.4 mmol/L (3.5-5.1)
[2021-08-13 08:00] VITALS: BP 98/56
[2021-08-13 08:04] LABS: BASOPHILS % (AUTO) 0.2 % (0.0-2.0); HEMOGLOBIN 14.9 g/dL (12.0-18.0); LYMPHOCYTES # (AUTO) 0.6 K/uL (2.0-11.5); LYMPHOCYTES % (AUTO) 9.4 % (20.5-51.1); MEAN CORPUSCULAR HEMOGLOBIN 29 pg (27-31); MEAN CORPUSCULAR HGB CONC 33 g/dL (33-37); MEAN CORPUSCULAR VOLUME 87.4 fL (80-94); MONOCYTES # (AUTO) 0.4 K/uL (0.8-1.0); MONOCYTES % (AUTO) 7.4 % (1.7-9.3); PLATELET COUNT (AUTO) 67 K/uL (140-450); RED BLOOD CELL COUNT(AUTO) 5.15 MIL/uL (4.20-6.10); RED CELL DISTRIBUTION WIDTH 15.7 % (11.6-13.7)
[2021-08-13] MEDS: VANCOMYCIN HCL 1.25 GM in DEXTROSE 5% 250 ML IV SCH (09:10)
[2021-08-13] MEDS: PANTOPRAZOLE 40 MG TABEC PO SCH (09:13)
--- NOTE | 2021-08-13 09:13 | NUR ---
ADMINISTERED SCHEDULED MEDICATIONS. HELD MEDICATION HEPARIN PER PARAMETERS. EDUCATED PT REGARDING MEDS ADMINISTERED. PT APHASIC. CALL LIGHT WITHIN REACH. ALL SAFETY MEASURES IN PLACE. WILL CONTINUE TO MONITOR.
[2021-08-13 12:00] VITALS: BP 101/64
[2021-08-13] MEDS: THERAHONEY GEL 42.5 GM TP SCH (13:10)
[2021-08-13] MEDS: Z-GUARD PASTE TP SCH (13:10)
--- NOTE | 2021-08-13 13:10 | NUR ---
IV MEDICATION ADMINISTERED BY RN. WOUND TX DONE. DRESSINGS CHANGED. CALL LIGHT WITHIN REACH. ALL SAFETY MEASURES IN PLACE. WILL CONTINUE TO MONITOR.
--- NOTE | 2021-08-13 13:28 | NUR ---
DC PLANNING: RECEIVED A CALL FROM PT'S [phone] REQUESTED FOR TRANSFERRING HIM TO [facility], THAT IS [facility]. CALLED [facility] [phone] SPOKE WITH MADHAV MORRISON, STATED WILL REVIEW THE CASE AND CALL BACK. FAXED ALL PAPER WORK TO [phone]. CM TO FOLLOW Addendum: 08/13/21 at 1338 by Bhavna Anderson RN DC PLANNING: RECEIVED A CALL FROM RATNA (PT'S ) STATED [facility] ACCEPTED PT BUT THEY DON'T HAVE A GREEN ZONE AT THIS TIME AND SHE AGREED THAT PT CAN GO BACK TO [facility] AND ONCE THEY HAVE A BED WILL TRANSFER HIM TO [facility]. CALLED [facility] SPOKE WITH LORAINE, NOTIFIED HER THAT PT CAN GO BACK TO [facility]. PER LORAINE WILL ACCEPT PT WHEN HE IS STABLE. CM TO FOLLOW Addendum: 08/14/21 at 1215 by Bhavna Anderson RN DC PLANNING: RECEIVED A CALL FROM PT'S REQUESTING THE DR TO CALL HER BROTHER DR GONZALESE WHICH IS A PRIMARY PHYSICIAN AND HAS CONCERN ABOUT THE SEPSIS. NOTIFIED DR LYN STATED HE HAD TALKED TO HIM BEFORE AND WILL CALL HIM AGAIN. RATNA REQUESTED THE PAPERWORK TO BE FAXED TO [phone] ATTENTION TO MEHRAN. FAXED ALL PAPERWORK AND WILL F/U WITH MEHRAN AT [phone] CM TO FOLLOW Addendum: 08/14/21 at 1646 by Bhavna Anderson RN DC PLANNING: HELD DISCHARGE, PATIENT SPIKES FEVER AND TACHYCARDIC. CALLED PT'S LEFT A MESSAGE. CM TO FOLLOW
[2021-08-13] MEDS ORDERED: MAG SULF 2000 MG/WATER PREMIX 50 ML IV SCH (14:05)
[2021-08-13] MEDS ORDERED: POTASSIUM CHLORIDE 20% 40 MEQ/15 ML UDC GT SCH ×2 (14:05→18:00)
[2021-08-13] MEDS: AMIODARONE 200 MG TAB GT SCH ×2 (14:41→21:17)
[2021-08-13 16:00] VITALS: BP 107/53
--- NOTE | 2021-08-13 16:24 | NUR ---
ASSISTED WITH CHANGING AND REPOSITIONING PT. CHANGED PT WOUND DRESSING AGAIN. PT TOLERATED WELL. WILL CONTINUE TO MONITOR.
--- NOTE | 2021-08-13 19:08 | NUR ---
PT IS IN BED RESTING AT THIS TIME. PT IS ON TRACH TO T BAR, WITH 02 SAT AT 92%. NO SIGNS OF DISTRESS NOTED. NO SIGNS OF PAIN OR DISCOMFORT. PT IS STABLE. WILL ENDORSE TO SCLEROSCOPE TESTER NURSE.
--- NOTE | 2021-08-13 19:30 | NUR ---
RECEIVED BEDSIDE REPORT FOR CONTINUITY OF CARE FROM DAY SHIFT RN. PT IS AWAKE. TRACH TO T-BAR. SATING 90%. NO SIGNS OF DISTRESS NOTED. BED AT THE LOWEST POSITION. ALL SAFETY MEASURES TAKEN. WILL CONTINUE TO MONITOR THE PT.
--- NOTE | 2021-08-13 19:42 | NUR ---
PT PRESENTS LAYING IN BED TACHYPNEIC RR OF 36 CURRENT SATURATION 93% ON 12LPM 60% FIO2 COOL AEROSOL T-PIECE PT TOLERATED HHN TX. DEEP TRACHEAL SUCTION FOR SMALL RED FROTHY. NO DISTRESS NOTED WILL CONTINUE TO MONITOR.
[2021-08-13 20:00] VITALS: BP 131/60
[2021-08-13] MEDS: SIMVASTATIN 10 MG TAB GT SCH (21:16)
[2021-08-13] MEDS: VANCOMYCIN 1,000 MG in DEXTROSE 5% 250 ML IV SCH (22:32)
--- NOTE | 2021-08-13 23:45 | NUR ---
PT PRESENTS TACHYPNEIC RR 36 BPM, INCREASED WOB, WARM TO THE TOUCH, SATING 88% ON 60% FIO2 12LPM COOL AEROSOL T-PIECE. INCREASED FIO2 TO 100% 15 LPM SATS IMPROVED TO 90%. REPORTED TO RN AND ASKED TO ASSES IF PT IS FEBRILE AND CLARIFY CODE STATUS. WILL CONTINUE TO MONITOR.
--- NOTE | 2021-08-13 23:50 | NUR ---
CALLED RATNA REGARDING PUTTING THE PT ON A VENTILATOR. PT IS ON TRACH TO VENT SATING 88%. RT RECOMMENDED PUTTING THE PT ON VENTILATOR TO INCREASE O2 SATURATION. IS OKAY WITH PUTTING THE PT ON VENTILATOR.
[2021-08-14] VITALS: BP 138/64
--- NOTE | 2021-08-14 00:10 | NUR ---
MESSAGED DR. LYN ON WHAT IS GOING ON. THAT I CALLED AND SHE WANTED TO UPDATE DR. BROWN ON THE PT CURRENT STATUS. THAT RT WANTED TO PUT THE PT ON VENTILATOR TO INCREASE HIS O2 SATURATION. PT IS SWITCHING FROM TRACH TO TBAR TO TRACH TO VENT. DR. LYN SAID SURE.
[2021-08-14] MEDS ORDERED: DEXTROSE 50% 50 ML SYR IVP PRN (00:45)
--- NOTE | 2021-08-14 01:30 | NUR ---
PT IS ON TRACH TO VENT. SATING 94%. PT IS NOT IN ANY DISTRESS. BREATHING RHYTHMIC AND SYMMETRICAL. BED AT THE LOWEST POSITION. HEAD OF BED RAISED. WILL CONTINUE TO MONITOR THE PT.
[2021-08-14 04:00] VITALS: BP 128/62
[2021-08-14] MEDS: MEROPENEM 1,000 MG in NACL 0.9% 50 ML IV SCH ×3 (04:09→20:25)
[2021-08-14] MEDS: DILTIAZEM 30 MG TAB PO SCH ×3 (04:09→20:24)
[2021-08-14] MEDS: BLOOD GLUCOSE MONITORING 1 DEV DEV FS SCH ×4 (06:39→20:25)
[2021-08-14] MEDS: INSULIN LISPRO SLIDING SCALE 100 UNITS/ML VIAL SUBQ PRN ×4 (06:39→20:27)
--- NOTE | 2021-08-14 07:10 | NUR ---
ENDORSED PT TO DAY SHIFT RN FOR CONTINUITY OF CARE. PT IS STABLE.
[2021-08-14] MEDS: ALBUTEROL SULFATE/IPRATROPIU 3 ML SOL IH SCH ×3 (07:11→19:19)
--- NOTE | 2021-08-14 07:15 | NUR ---
RECEIVED BEDSIDE REPORT FROM CRANE HOIST OR LIFT OPERATOR NURSE FOR CONTINUITY OF CARE. PT IS ASLEEP, EYES CLOSED. CHEST RISE AND FALL SYMMETRICAL. ON TRACH TO VENT WITH BREATHING UNLABORED. O2 SAT IS 100%. G TUBE IN PLACE INFUSING FEEDING ORDERED. SUPRAPUBIC CATH IN PLACE DRAINING CLEAR, YELLOW URINE. SACRAL WOUND WITH DRY DRESSING IN PLACE. IV IS IN THE LEFT AC 20 GAUGE RUNNING FLUIDS ORDERED. PT IS STABLE. PLAN OF CARE DISCUSSED.
[2021-08-14 07:28] LABS: BASOPHILS % (AUTO) 0.2 % (0.0-2.0); HEMATOCRIT 41.3 % (36-52); HEMOGLOBIN 13.7 g/dL (12.0-18.0); LYMPHOCYTES # (AUTO) 0.4 K/uL (2.0-11.5); LYMPHOCYTES % (AUTO) 4.6 % (20.5-51.1); MEAN CORPUSCULAR HEMOGLOBIN 29 pg (27-31); MEAN CORPUSCULAR HGB CONC 33 g/dL (33-37); MONOCYTES # (AUTO) 0.7 K/uL (0.8-1.0); MONOCYTES % (AUTO) 7.7 % (1.7-9.3); NEUTROPHILS # (AUTO) 8.3 K/uL (1.8-7.7); NEUTROPHILS % (AUTO) 87.5 % (42.2-75.2); PLATELET COUNT (AUTO) 90 K/uL (140-450); RED BLOOD CELL COUNT(AUTO) 4.74 MIL/uL (4.20-6.10); RED CELL DISTRIBUTION WIDTH 15.6 % (11.6-13.7); WHITE BLOOD COUNT (AUTO) 9.5 K/uL (4.8-10.8)
[2021-08-14 08:00] VITALS: BP 124/66
[2021-08-14] MEDS: AMIODARONE 200 MG TAB GT SCH ×2 (08:13→20:25)
[2021-08-14] MEDS: PANTOPRAZOLE 40 MG TABEC PO SCH (08:13)
[2021-08-14] MEDS: VANCOMYCIN 1,000 MG in DEXTROSE 5% 250 ML IV SCH ×2 (08:13→21:08)
[2021-08-14] MEDS: ASPIRIN 81 MG TAB.CHEW GT SCH (08:13)
[2021-08-14] MEDS: NACL 0.9% 1,000 ML IV SCH (09:03)
--- NOTE | 2021-08-14 09:30 | NUR ---
PT WAS CHANGED AND REPOSITIONED. BED BATH WAS GIVEN. ORAL CARE AND ORAL SUCTIONING PROVIDED. BREATHING APPEARS LABORED ON TRACH TO VENT. COUGHING INTERMITTENTLY. O2 SAT IS 94%. G TUBE RESIDUAL IS LESS THAN 5 ML. WILL CONTINUE TO MONITOR.
[2021-08-14 10:27] LABS: ANION GAP 15.3 (8-16); POTASSIUM 4.3 mmol/L (3.5-5.1)
--- NOTE | 2021-08-14 10:47 | NUR ---
SPOKE TO , RATNA, WHO APPEARS TO BE UPSET THAT PT WAS PLACED ON VENTILATOR LAST NIGHT FROM T PIECE. EXPLAINED THAT FROM WHAT I RECEIVED IN REPORT IS THAT THE PT O2 SAT WAS BETWEEN 85-88%. SHE ASKED FOR DR. LYN TO SPEAK TO HER BROTHER WHO IS THE FAMILY DOCTOR. CHRISTIAN PASCAL [phone] OR [phone]. GAVE THIS INFORMATION TO DR. LYN VIA MESSAGE. WILL WAIT FOR RESPONSE.
--- NOTE | 2021-08-14 11:48 | NUR ---
INFORMED DR. LYN ABOUT THE PT'S FEVER OF 101.8 F. WILL ADMINISTER TYLENOL SHORTLY. COOLING MEASURES ALREADY APPLIED. DOCTOR STATED PT WILL NOT BE GOING TO SNF TODAY BECAUSE OF THE FEVER.
[2021-08-14] MEDS: ACETAMINOPHEN 650 MG SUPP RC PRN ×2 (11:58→23:52)
--- NOTE | 2021-08-14 11:58 | NUR ---
TYLENOL SUPPOSITORY GIVEN FOR FEVER OF 101.8 F. WILL CONTINUE TO MONITOR FEVER.
[2021-08-14 12:00] VITALS: BP 124/66
[2021-08-14] MEDS: THERAHONEY GEL 42.5 GM TP SCH (12:02)
[2021-08-14] MEDS: Z-GUARD PASTE TP SCH (12:02)
--- NOTE | 2021-08-14 12:06 | NUR ---
SPOKE TO DR. LYN ABOUT ELEVATED GLUCOSE LEVEL. HE STATES TO CHECK WITH SALES REPRESENTATIVE RURAL POWER ABOUT FEEDING. SALES REPRESENTATIVE RURAL POWER SUGGESTED GLUCERNA AT THE SAME RATE. INFORMED DR. LYN AND HE AGREED.
--- NOTE | 2021-08-14 13:00 | NUR ---
RECHECKED PT'S TEMP AND IT WAS 99.0 F. TEMPERATURE HAS DECREASED. COOLING MEASURES PLACED AGAIN. WILL CONTINUE TO MONITOR TEMP.
--- NOTE | 2021-08-14 14:58 | NUR ---
PT WAS REPOSITIONED. NO DISTRESS NOTED AT THIS TIME. PT IS STABLE. G TUBE FEEDING INFUSING AND IV INFUSING ORDERED. WILL MONITOR.
[2021-08-14 16:00] VITALS: BP 119/63
--- NOTE | 2021-08-14 19:15 | NUR ---
ENDORSED PT TO PROJECT MANAGEMENT ADVISOR NURSE FOR CONTINUITY OF CARE. PT IS STABLE. O2 SAT IS 95% ON TRACH TO VENT. PLAN OF CARE DISCUSSED.
--- NOTE | 2021-08-14 19:16 | NUR ---
RECEIVED BEDSIDE REPORT FROM DAY RN. PT IS AWAKE, APHASIC ABLE TO TRACKS NURSE. RESPIRATIONS ARE EQUAL AND UNLABORED ON TRACH TO VENT. FIO2 100% SAT WELL 100% RR 25. G TUBE IN PLACE INFUSING FEEDING ORDERED. SUPRAPUBIC CATH IN PLACE DRAINING DARK ORANGE URINE W/ SEDIMENTS. SACRAL WOUND DRESSING IS C/D/I. IV IS IN THE LEFT AC 20 GAUGE RUNNING FLUIDS ORDERED. PT IS STABLE. SAFETY MEASURES ARE IN PLACE. PLAN OF CARE DISCUSSED. WILL CONTINUE TO MONITOR.
[2021-08-14 20:00] VITALS: BP 132/70
[2021-08-14] MEDS: SIMVASTATIN 10 MG TAB GT SCH (20:24)
--- NOTE | 2021-08-14 20:25 | NUR ---
VSS. PATIENT WITH NO GASTRIC RESIDUALS NOTED. OSVALDO MEDICATIONS GIVEN PER ORDERS. HELD HEPARIN D/T LOW PLT COUNT. ORAL CARE PROVIDED. DEEP SUCTION PINK/THICK PHLEGM. WILL CONTINUE TO MONITOR.
[2021-08-14] MEDS ORDERED: INSULIN LANTUS 100 UNITS/ML 10 ML VIAL SUBQ SCH (21:00)
--- NOTE | 2021-08-14 22:15 | NUR ---
DEEP SUCTION MODERATE AMOUNT OF THICK PINK SECRETIONS. HOB ELEVATED. ALL SAFETY MEASURES ARE IN PLACE. WILL CONTINUE TO MONITOR.
--- NOTE | 2021-08-14 23:52 | NUR ---
ADMIN PRN TYLENOL FOR TEMP 100.5 PT TOLERATED WELL. ALL SAFETY MEASURES ARE IN PLACE. WILL CONTINUE TO MONITOR.
[2021-08-15] VITALS: BP 131/65
[2021-08-15] MEDS: HYDROcodone/APAP 7.5/325 MG 1 TAB PO PRN ×3 (01:26→12:49)
--- NOTE | 2021-08-15 01:26 | NUR ---
PATIENT WITH FACIAL GRIMACING AND GROANING. PT IS APHASIC UNABLE TO VERBALIZE NEEDS ADMIN PRN NORCO FOR FLACC4. WILL CONTINUE TO MONITOR.
[2021-08-15 04:00] VITALS: BP 133/68
--- NOTE | 2021-08-15 04:00 | NUR ---
VITAL SIGNS ARE WITHIN NORMAL LIMITS. ORAL CARE PROVIDED PT TOLERATED WELL. ALL SAFETY MEASURES ARE IN PLACE. WILL CONTINUE TO MONITOR.
[2021-08-15] MEDS: DILTIAZEM 30 MG TAB PO SCH ×3 (04:15→21:01)
[2021-08-15] MEDS: MEROPENEM 1,000 MG in NACL 0.9% 50 ML IV SCH ×3 (04:15→21:03)
[2021-08-15] MEDS: BLOOD GLUCOSE MONITORING 1 DEV DEV FS SCH ×4 (05:37→21:25)
[2021-08-15] MEDS: INSULIN LISPRO SLIDING SCALE 100 UNITS/ML VIAL SUBQ PRN ×4 (05:38→21:23)
--- NOTE | 2021-08-15 06:29 | NUR ---
FLACC 4 ADMIN PRN NORCO. PATIENT WAS CLEANED AND REPOSITION WITH ASSISTANCE OF ANOTHER RN. ALL SAFETY MEASURES ARE IN PLACE. WILL CONTINUE TO MONITOR.
--- NOTE | 2021-08-15 07:15 | NUR ---
RECEIVED BEDSIDE REPORT FROM COTTON CLASSER NURSE FOR CONTINUITY OF CARE. PT IS ASLEEP. CHEST RISE AND FALL SYMMETRICAL. ON TRACH TO VENT WITH BREATHING UNLABORED. O2 SAT IS 90%. HR IS 96 ON TELE MONITOR. G TUBE IN PLACE. SUPRAPUBIC CATH IN PLACE DRAINING URINE. SACRAL WOUND WITH DRY DRESSING IN PLACE. IV IS IN THE LEFT AC 20 GAUGE RUNNING NS AT 60 ML PER HOUR PER ORDER. PT IS STABLE. PLAN OF CARE DISCUSSED.
--- NOTE | 2021-08-15 07:19 | NUR ---
BEDSIDE REPORT GIVEN TO DAY RN. PT ENDORSED IN STABLE CONDITION.
[2021-08-15 07:32] LABS: BASOPHILS # (AUTO) 0.1 K/uL (0.00-0.22); RED CELL DISTRIBUTION WIDTH 15.8 % (11.6-13.7)
[2021-08-15 07:36] LABS: BASOPHILS % (AUTO) 0.9 % (0.0-2.0); EOSINOPHILS % (AUTO) 0.4 % (0.0-4.0); HEMATOCRIT 39.5 % (36-52); HEMOGLOBIN 13.3 g/dL (12.0-18.0); LYMPHOCYTES # (AUTO) 0.8 K/uL (2.0-11.5); LYMPHOCYTES % (AUTO) 8.1 % (20.5-51.1); MEAN CORPUSCULAR HEMOGLOBIN 29 pg (27-31); MEAN CORPUSCULAR HGB CONC 34 g/dL (33-37); MEAN CORPUSCULAR VOLUME 87.1 fL (80-94); MONOCYTES # (AUTO) 0.7 K/uL (0.8-1.0); MONOCYTES % (AUTO) 7.3 % (1.7-9.3); NEUTROPHILS # (AUTO) 8.2 K/uL (1.8-7.7); NEUTROPHILS % (AUTO) 83.3 % (42.2-75.2); PLATELET COUNT (AUTO) 182 K/uL (140-450); RED BLOOD CELL COUNT(AUTO) 4.53 MIL/uL (4.20-6.10); WHITE BLOOD COUNT (AUTO) 9.8 K/uL (4.8-10.8)
[2021-08-15 07:55] LABS: ANION GAP 14.1 (8-16); CARBON DIOXIDE 23.1 mmol/L (21-32); CREATININE 0.8 mg/dL (0.6-1.3); POTASSIUM 4.2 mmol/L (3.5-5.1)
[2021-08-15] MEDS: ALBUTEROL SULFATE/IPRATROPIU 3 ML SOL IH SCH ×3 (07:56→19:10)
[2021-08-15 08:00] VITALS: BP 118/55
[2021-08-15] MEDS: AMIODARONE 200 MG TAB GT SCH ×2 (08:23→20:59)
[2021-08-15] MEDS: PANTOPRAZOLE 40 MG TABEC PO SCH (08:24)
[2021-08-15] MEDS: ASPIRIN 81 MG TAB.CHEW GT SCH (08:24)
[2021-08-15] MEDS: VANCOMYCIN 1,000 MG in DEXTROSE 5% 250 ML IV SCH (08:24)
--- NOTE | 2021-08-15 09:30 | NUR ---
PT WAS CHANGED AND REPOSITIONED. BREATHING IS LABORED ON TRACH TO VENT. O2 SAT IS 90%. G TUBE IN PLACE INFUSING FLUIDS. WILL CONTINUE TO MONITOR PT.
--- NOTE | 2021-08-15 10:51 | NUR ---
08/15/21 RD FOLLOW UP COMPLETED PLEASE REFER TO NUTRITION ASSESSMENT UNDER CARE ACTIVITY FOR ESTIMATED NUTRITIONAL NEEDS. 1. CONTINUE GLUCERNA 1.2 @ 60 ML/HR TOLERATED -WATER FLUSH: 100 ML Q6H 2. RECOMMENDED NAYE BID PER PROTOCOL -WITH NAYE BID, PT WILL RECEIVE 1888 KCAL AND 92 GM PROTEIN MEETING 90% ESTIMATED KCAL AND 100% ESTIMATED PROTEIN NEEDS 3. MONITOR FOR EDEMA 4. RD TO FOLLOW-UP 3-5 DAYS, MODERATE RISK SEAN SRIVASTAVA RD
--- NOTE | 2021-08-15 11:30 | NUR ---
PT IS AWAKE WITH EYES OPEN. TRACKS WITH EYES. AIR LEAK NOTED AROUND THE TRACH. O2 SAT IS 90%. FLACC 0. WILL CONTINUE TO MONITOR.
[2021-08-15 12:00] VITALS: BP 128/65
--- NOTE | 2021-08-15 12:49 | NUR ---
PT WAS GIVEN NORCO FOR PAIN. FLACC 7. WILL CONTINUE TO MONITOR.
[2021-08-15] MEDS: THERAHONEY GEL 42.5 GM TP SCH (13:04)
[2021-08-15] MEDS: Z-GUARD PASTE TP SCH (13:04)
--- NOTE | 2021-08-15 13:30 | NUR ---
MESSAGED MD REGRADING TRACH. TRACH STATED OKAY TO SWITCH TO CUFFED PORTAX. CUFF CHANGED, NO DISTRESSED NOTED. PT PLACED BACK ON VENT.
--- NOTE | 2021-08-15 14:45 | NUR ---
ROUNDED ON PT. HE IS ASLEEP. CHEST RISE AND FALL SYMMETRICAL. NO DISTRESS NOTED ON TRACH TO VENT. PT IS RESTING COMFORTABLY. NO FEVER AT THIS TIME. WILL CONTINUE TO MONITOR.
[2021-08-15 16:00] VITALS: BP 112/63
--- NOTE | 2021-08-15 17:00 | NUR ---
PT IS STABLE. ON TRACH TO VENT WITH O2 SAT 95%. BREATHING IS UNLABORED. PT APPEARS CALM AND IS RESTING IN SEMI FOWLERS. FEEDING IS INFUSING ORDERED.
[2021-08-15] MEDS ORDERED: MAGNESIUM HYDROXIDE 2400 MG/30 ML UDC PO SCH (17:35)
--- NOTE | 2021-08-15 19:07 | NUR ---
ENDORSED REPORT TO FLAT SURFACER NURSE FOR CONTINUITY OF CARE. PT IS STABLE. PLAN OF CARE DISCUSSED.
--- NOTE | 2021-08-15 19:30 | NUR ---
RECEIVED REPORT FROM PREETI DE SOUZA AT BEDSIDE FOR CONTINUITY OF CARE, PT IN STABLE CONDITION. HE IS AOX1 WITH HOB WILL TRACK WITH EYES BUT IS APHASIAC. HE IS A TRACH TO VENT WITH VITAL SIGNS FOLLOWS: T 100.3 P 117 R 36 B/P 104/65 02 91% WITH CURRENT VENT SETTINGS FOLLOWS: VT 400 PEEP 5 RR 22 FLOW 40. PT ALSO HAS A SUPRAPUBIC CATHETER DRAINING YELLOW URINE.HE HAS A G TUBE RUNNING GLUCERNA AT 60MLS/HR.HIS IV SITE IS THE LEFT AC 20 GUAGE INTACT AND RUNNING NORMAL SALINE AT 10MLS/HR TO KVO. PT HAS FOOT DROP WITH HEEL PROTECTORS ON. ALL ORDERED PRECAUTIONS IN PLACE.
[2021-08-15 20:00] VITALS: BP 107/63
[2021-08-15] MEDS ORDERED: SODIUM PHOSPHATE 118 ML ENEM RC SCH (20:00)
[2021-08-15] MEDS: SIMVASTATIN 10 MG TAB GT SCH (21:00)
[2021-08-15] MEDS: INSULIN LANTUS 100 UNITS/ML 10 ML VIAL SUBQ SCH (21:20)
--- NOTE | 2021-08-15 21:30 | NUR ---
PT FINGERSTICK IS 218, HE WAS GIVEN ORDERED 15 UNITS OF LANTUS AND 4 UNITS OF HUMALOG COVERAGE PER S/S. WELL HEPARIN SQ SHOT. HE WAS ALSO GIVEN ORDERED AMIODARONE, CARDIZEM AND ZOCOR VIA THE G TUBE. EXPLAINED PURPOSE OF MEDICATION, PT UNABLE TO COMPREHEND UNDERSTANDING. G TUBE FLUSHED PATENT. ALL ORDERED PRECAUTIONS IN PLACE.
--- NOTE | 2021-08-15 22:00 | NUR ---
LAB CALLED WITH RESULTS OF SACRAL WOUND CULTURE POSITIVE FOR MDRO AND MRSA OF THE WOUND, PT ALREADY ON VANCOMYCIN AND MERREM WHICH IS SUSCEPTIBLE TO THE BACTERIA FOUND IN THE WOUND (AND WOUND CULTURE).
[2021-08-15] MEDS: ACETAMINOPHEN 650 MG SUPP RC PRN (22:34)
--- NOTE | 2021-08-15 22:35 | NUR ---
PT TURNED AND REPOSITIONED IN BED, HE WAS GIVEN TYLENOL FOR INCREASED TEMP WELL ICE PACKS FOR COOLING MEASURES. SACRAL DRESSING INTACT. FECAL MATTER IN THE COLON. ALL ORDERED PRECAUTIONS IN PLACE.
[2021-08-16] VITALS: BP 114/59
--- NOTE | 2021-08-16 00:15 | NUR ---
PT WAS TURNED AND REPOSITIONED IN BED; HE WAS GIVEN ORDERED FLEETS ENEMA. V/S FOLLOWS: T 97.9 P 107 R 32 B/P 114/59 02 91% ON ALL TRACH TO VENT SETTINGS. G TUBE CONTINUES GLUCERNA ORDERED. SUPRAPUBIC CATHETER INTACT AND ASYMPTOMATIC. PT PLACED ON CONTACT PRECAUTIONS, ALL OTHER ORDERED PRECAUTIONS IN PLACE.
[2021-08-16] MEDS: ALBUTEROL SULFATE/IPRATROPIU 3 ML SOL IH SCH ×4 (01:35→19:20)
[2021-08-16 04:00] VITALS: BP 108/65
[2021-08-16] MEDS: DILTIAZEM 30 MG TAB PO SCH ×3 (05:38→20:57)
[2021-08-16] MEDS: MEROPENEM 1,000 MG in NACL 0.9% 50 ML IV SCH ×3 (05:38→20:46)
--- NOTE | 2021-08-16 06:00 | NUR ---
PT WAS TURNED, CHANGED AND REPOSITIONED IN BED, DRESSING OF SACRAL WOUND CHANGED, PT DID NOT HAVE A BM THIS SHIFT. MERREM HUNG AND RUNNING ORDERED. FINGERSTICK IS 275, 6 UNITS OF HUMALOG GIVEN HUMALOG S/S. ALL ORDERED PRECAUTIONS IN PLACE.
--- NOTE | 2021-08-16 07:30 | NUR ---
RECEIVED REPORT FROM REAL ESTATE SALES ASSOCIATE NURSE FOR CONTINUITY OF CARE, POC DISCUSSED. PT IS TRACH TO VENT. HAS A GTUBE RUNNING GLUCERNA @60 WITH WATER FLUSHES OF 100C Q6. PT HAS A LEFT AC 20G RUNNING TKO. ALL SAFETY MEASURES IN PLACE, CALL LIGHT WITHIN REACH. WILL CONTINUE TO MONITOR.
[2021-08-16] MEDS: BLOOD GLUCOSE MONITORING 1 DEV DEV FS SCH ×4 (07:42→20:56)
[2021-08-16] MEDS: INSULIN LISPRO SLIDING SCALE 100 UNITS/ML VIAL SUBQ PRN ×4 (07:42→21:00)
[2021-08-16 08:00] VITALS: BP 111/59
[2021-08-16 08:18] LABS: BASOPHILS % (AUTO) 0.3 % (0.0-2.0); EOSINOPHILS # (AUTO) 0.1 K/uL (0-0.4); HEMATOCRIT 38.9 % (36-52); HEMOGLOBIN 13.1 g/dL (12.0-18.0); LYMPHOCYTES # (AUTO) 0.7 K/uL (2.0-11.5); LYMPHOCYTES % (AUTO) 12.2 % (20.5-51.1); MEAN CORPUSCULAR HEMOGLOBIN 29 pg (27-31); MEAN CORPUSCULAR HGB CONC 34 g/dL (33-37); MEAN CORPUSCULAR VOLUME 87.3 fL (80-94); MONOCYTES # (AUTO) 0.4 K/uL (0.8-1.0); MONOCYTES % (AUTO) 7.8 % (1.7-9.3); NEUTROPHILS # (AUTO) 4.5 K/uL (1.8-7.7); NEUTROPHILS % (AUTO) 78.7 % (42.2-75.2); PLATELET COUNT (AUTO) 162 K/uL (140-450); RED BLOOD CELL COUNT(AUTO) 4.46 MIL/uL (4.20-6.10); RED CELL DISTRIBUTION WIDTH 15.8 % (11.6-13.7); WHITE BLOOD COUNT (AUTO) 5.7 K/uL (4.8-10.8)
[2021-08-16 09:21] LABS: ANION GAP 12.6 (8-16); CARBON DIOXIDE 28.4 mmol/L (21-32); CREATININE 0.9 mg/dL (0.6-1.3)
[2021-08-16] MEDS: ASPIRIN 81 MG TAB.CHEW GT SCH (09:36)
[2021-08-16] MEDS: PANTOPRAZOLE 40 MG TABEC PO SCH (09:36)
[2021-08-16] MEDS: AMIODARONE 200 MG TAB GT SCH ×2 (09:36→20:49)
[2021-08-16] MEDS: SENNA 8.6 MG TAB PO SCH (09:36)
--- NOTE | 2021-08-16 09:42 | NUR ---
OSVALDO MEDICATION ADMINISTERED PER MD ORDER, PT TOLERATED ADMINISTRATION. NO RESIDUAL NOTED. FLUSHED WITH 10CC PRIOR TO AND AFTER ADMINISTRATION. ALL SAFETY MEASURES IN PLACE, CALL LIGHT WITHIN REACH. WILL CONTINUE TO MONTIOR.
[2021-08-16] MEDS ORDERED: VANCOMYCIN 1,000 MG in DEXTROSE 5% 250 ML IV SCH (11:00)
[2021-08-16 12:00] VITALS: BP 127/66
[2021-08-16] MEDS: Z-GUARD PASTE TP SCH (13:01)
[2021-08-16] MEDS: THERAHONEY GEL 42.5 GM TP SCH (13:01)
--- NOTE | 2021-08-16 13:51 | NUR ---
OSVALDO MEDICATION ADMINISTERED PER MD ORDER, PT TOLERATED ADMINISTRATION. NO RESIDUAL NOTED. NEW TUBE FEEDING STARTED, RT AT BEDSIDE GIVING BREATHING TREATMENT. ALL SAFETY MEASURES IN PLACE, CALL LIGHT WITHIN REACH. WILL CONTINUE TO MONITOR.
[2021-08-16 16:00] VITALS: BP 125/62
--- NOTE | 2021-08-16 17:34 | NUR ---
PT HAS BEEN CLEANED, REPOSITIONED AND GIVEN A BEDBATH. PT REMAINED STABLE DURING CLEANING. NO BM NOTED. ALL SAFETY MEASURES IN PLACE, CALL LIGHT WITHIN REACH. WILL CONTINUE TO MONITOR.
--- NOTE | 2021-08-16 18:36 | NUR ---
PT HAS REMAINED STABLE THROUGHOUT SHIFT, ALL NEEDS HAVE BEEN MET. ALL SAFETY MEASURES IN PLACE, CALL LIGHT WITHIN REACH. WILL BE ENDORSED TO ROVING DEPARTMENT END FINDER NURSE.
--- NOTE | 2021-08-16 19:45 | NUR ---
PT'S CONDITION IS STABLE.RESP.UNLABORED W/VENTILATOR.IVF INFUSING WELL.F/C PATENT AND DRAINING YELLOW COLOR URINE HR IS ST.WILL CONTINUE MONITORING.
[2021-08-16 20:00] VITALS: BP 130/78
[2021-08-16] MEDS: SIMVASTATIN 10 MG TAB GT SCH (20:48)
[2021-08-16] MEDS: INSULIN LANTUS 100 UNITS/ML 10 ML VIAL SUBQ SCH (20:59)
[2021-08-16] MEDS ORDERED: SODIUM PHOSPHATE 118 ML ENEM RC SCH (21:00)
[2021-08-16] MEDS: VANCOMYCIN 1,000 MG in DEXTROSE 5% 250 ML IV SCH (21:42)
[2021-08-17] VITALS: BP 130/71
[2021-08-17] MEDS: ALBUTEROL SULFATE/IPRATROPIU 3 ML SOL IH SCH ×4 (00:10→19:00)
--- NOTE | 2021-08-17 00:40 | NUR ---
Pt taken to CT scan on vent with RN. Pt vernon well. Vent placed back on wall.
[2021-08-17 04:00] VITALS: BP 127/77
[2021-08-17] MEDS: MEROPENEM 1,000 MG in NACL 0.9% 50 ML IV SCH ×3 (05:05→20:50)
[2021-08-17] MEDS: DILTIAZEM 30 MG TAB PO SCH ×3 (05:06→20:52)
[2021-08-17 07:04] LABS: BASOPHILS % (AUTO) 0.4 % (0.0-2.0); EOSINOPHILS # (AUTO) 0.2 K/uL (0-0.4); EOSINOPHILS % (AUTO) 4.2 % (0.0-4.0); HEMATOCRIT 37.8 % (36-52); HEMOGLOBIN 12.6 g/dL (12.0-18.0); LYMPHOCYTES # (AUTO) 0.5 K/uL (2.0-11.5); LYMPHOCYTES % (AUTO) 12.6 % (20.5-51.1); MEAN CORPUSCULAR HEMOGLOBIN 29 pg (27-31); MEAN CORPUSCULAR HGB CONC 33 g/dL (33-37); MEAN CORPUSCULAR VOLUME 87.3 fL (80-94); MONOCYTES # (AUTO) 0.4 K/uL (0.8-1.0); MONOCYTES % (AUTO) 9.7 % (1.7-9.3); NEUTROPHILS # (AUTO) 3.2 K/uL (1.8-7.7); NEUTROPHILS % (AUTO) 73.1 % (42.2-75.2); PLATELET COUNT (AUTO) 210 K/uL (140-450); RED BLOOD CELL COUNT(AUTO) 4.32 MIL/uL (4.20-6.10); RED CELL DISTRIBUTION WIDTH 15.4 % (11.6-13.7); WHITE BLOOD COUNT (AUTO) 4.3 K/uL (4.8-10.8)
--- NOTE | 2021-08-17 07:25 | NUR ---
RECEIVED REPORT FROM HEALTH EDUCATION SPECIALIST NURSE FOR CONTINUITY OF CARE, PT IS IN BED ON TRACH TO VENT IN STABLE CONDITION. ALL SAFETY MEASURES IN PLACE, CALL LIGHT WITHIN REACH. WILL CONTINUE TO MONITOR.
[2021-08-17 07:31] LABS: ANION GAP 11.9 (8-16); CARBON DIOXIDE 26.8 mmol/L (21-32); CREATININE 0.9 mg/dL (0.6-1.3); POTASSIUM 3.7 mmol/L (3.5-5.1)
[2021-08-17] MEDS ORDERED: bisacodyL 10 MG SUPP RC PRN (07:40)
--- NOTE | 2021-08-17 07:40 | NUR ---
CT ABD.& PELVIS W/O CONTRAST DONE.PT'S CONDITION IS STABLE.REPORT GIVEN TO LUIS ÁLVAREZ.
--- NOTE | 2021-08-17 07:48 | NUR ---
TUBE FEEDING CHANGED.
[2021-08-17] MEDS ORDERED: SODIUM PHOSPHATE 118 ML ENEM RC SCH (07:58)
[2021-08-17 08:00] VITALS: BP 136/81
[2021-08-17] MEDS: BLOOD GLUCOSE MONITORING 1 DEV DEV FS SCH ×4 (08:07→20:50)
[2021-08-17] MEDS: INSULIN LISPRO SLIDING SCALE 100 UNITS/ML VIAL SUBQ PRN ×4 (08:08→21:52)
--- NOTE | 2021-08-17 09:48 | NUR ---
[facility] MEDICATION ADMINISTERED PER MD ORDER, NO RESIDUAL NOTED. FLUSHED WITH 10CC PRIOR TO AND AFTER ADMINISTRATION. IV IS PATENT AND INTACT. ORDERED FLEET ENEMA ADMINISTERED. SMALL TO MODERATE BM EXPELLED, PT CLEANED AND WOUND DRESSING COMPLETED. CLEANED WITH NS, PAT DRY, THERAHONEY APPLIED, FOAM DRESSING PLACED. SUPPOSITORY INSERTED. ALL SAFETY MEASURES IN PLACE, CALL LIGHT WITHIN REACH. WILL CONTINUE TO MONITOR.
[2021-08-17] MEDS: bisacodyL 10 MG SUPP RC SCH (10:26)
[2021-08-17] MEDS: SENNA 8.6 MG TAB PO SCH (10:27)
[2021-08-17] MEDS: ASPIRIN 81 MG TAB.CHEW GT SCH (10:27)
[2021-08-17] MEDS: PANTOPRAZOLE 40 MG TABEC PO SCH (10:27)
[2021-08-17] MEDS: AMIODARONE 200 MG TAB GT SCH ×2 (10:27→20:51)
[2021-08-17] MEDS: VANCOMYCIN 1,000 MG in DEXTROSE 5% 250 ML IV SCH ×2 (10:28→22:44)
[2021-08-17 12:00] VITALS: BP 129/79
[2021-08-17] MEDS: Z-GUARD PASTE TP SCH (12:04)
[2021-08-17] MEDS: THERAHONEY GEL 42.5 GM TP SCH (12:04)
--- NOTE | 2021-08-17 12:48 | NUR ---
OSVALDO MEDICATION ADMINISTERED PER MD ORDER, BLOOD GLUCOSE CHECKED AND INSULIN ADMINISTERED PER MD ORDER. ALL SAFETY MEASURES IN PLACE, CALL LIGHT WITHIN REACH. WILL CONTINUE TO MONITOR.
[2021-08-17 16:00] VITALS: BP 129/77
--- NOTE | 2021-08-17 18:50 | NUR ---
ALL NEEDS HAVE BEEN MET THROUGHOUT SHIFT, PT REMAINED STABLE. ALL SAFETY MEASURES IN PLACE, CALL LIGHT WITHIN REACH. PT WILL BE ENDORSED TO COMMUNITY RELATIONS ADVISOR NURSE FOR CONTINUITY OF CARE.
--- NOTE | 2021-08-17 19:24 | NUR ---
RECEIVED PT WITH A PORTEX 7 TRACH TO VENT ON A TRILOGY PC/AC 25, RR12, PEEP5, 10LPM WITH NO SIGNS OF RESPIRATORY DISTRESS SATING 96%. BS REVEALED BILATERAL COARSE CRACKLES, SX SMALL RED/YELLOW THICK, ORAL CARE DONE, HOB ELEVATED, WILL CONTINUE TO MONITOR.
[2021-08-17 20:00] VITALS: BP 128/69
--- NOTE | 2021-08-17 20:05 | NUR ---
RECEIVED PT IN BED.CONDITION STABLE.RESP.UNLABORED.VS STABLE.SUPRAPUBIC CATH.PATENT AND DRAINING YELLOW COLOR URINE.PT IS TRACH TO VENT.WILL CONT.MONITORING.
--- NOTE | 2021-08-17 20:45 | NUR ---
DONOVANO.TROUGH=20.5.CALLED [facility] AND TALKED W/ SUSANNA.HE SAID HOLD VANCO FOR TONIGHT UNTIL PHARMACY ADJUST THE DOSE.HELD VANCOMYCIN AT 2100.
[2021-08-17] MEDS: SIMVASTATIN 10 MG TAB GT SCH (20:51)
[2021-08-17] MEDS: INSULIN LANTUS 100 UNITS/ML 10 ML VIAL SUBQ SCH (21:51)
--- NOTE | 2021-08-17 23:14 | NUR ---
PT PRESENTS LAYING IN BED WITH NO SIGNS OF RESPIRATORY DISTRESS SATING 96%. VENT PLUGGED INTO RED OUTLET, BS REVEALED COARSE CRACKLES AT APICES COARSE LEFT BASE CLEAR RIGHT BASE, SX SMALL YELLOW THICK, HOB ELEVATED, WILL CONTINUE TO MONITOR.
[2021-08-18] VITALS: BP 132/79
--- NOTE | 2021-08-18 01:22 | NUR ---
CONDITION STABLE.NO DISTRESS NOTED NOW.O2 SAT IS 97%.G-TUBE FEEDING IS IN PROGRESS.
[2021-08-18] MEDS: ALBUTEROL SULFATE/IPRATROPIU 3 ML SOL IH SCH ×4 (02:05→19:38)
[2021-08-18 04:00] VITALS: BP 121/76
[2021-08-18] MEDS: MEROPENEM 1,000 MG in NACL 0.9% 50 ML IV SCH ×3 (05:03→21:00)
[2021-08-18] MEDS: DILTIAZEM 30 MG TAB PO SCH ×3 (05:04→21:00)
--- NOTE | 2021-08-18 07:10 | NUR ---
RECEIVE REPORT FROM GARMENT SORTER NURSE FOR CONTINUITY OF PATIENT CARE. PATIENT SLEEPING. PATIENT TRACH TO VENT. PATIENT 02 SATING AT 95%. NO ACUTE DISTRESS NOTED. PATIENT HAS L AC 20G. PATIENT HAS G-TUBE RUNNING TUBE FEEDING. CALL LIGHT WITHIN REACH. ALL SAFETY MEASURES IN PLACE WILL CONTINUE TO MONITOR.
[2021-08-18 07:40] LABS: ANION GAP 12.9 (8-16); CREATININE 0.9 mg/dL (0.6-1.3); POTASSIUM 3.9 mmol/L (3.5-5.1)
[2021-08-18 08:00] VITALS: BP 127/75
[2021-08-18] MEDS: INSULIN LISPRO SLIDING SCALE 100 UNITS/ML VIAL SUBQ PRN ×4 (08:04→21:00)
[2021-08-18] MEDS: BLOOD GLUCOSE MONITORING 1 DEV DEV FS SCH ×4 (08:04→21:00)
[2021-08-18] MEDS: AMIODARONE 200 MG TAB GT SCH (08:38)
[2021-08-18] MEDS: SENNA 8.6 MG TAB PO SCH (08:38)
[2021-08-18] MEDS: bisacodyL 10 MG SUPP RC SCH (08:39)
[2021-08-18] MEDS: ASPIRIN 81 MG TAB.CHEW GT SCH (08:39)
[2021-08-18] MEDS: VANCOMYCIN 1,000 MG in DEXTROSE 5% 250 ML IV SCH (08:41)
--- NOTE | 2021-08-18 08:41 | NUR ---
REPORT GIVEN TO LUIS RN.PT'S CONDITION IS STABLE.
[2021-08-18] MEDS: LANSOPRAZOLE 30 MG CAPDR GT SCH (08:55)
[2021-08-18] MEDS ORDERED: SODIUM PHOSPHATE 118 ML ENEM RC PRN (09:00)
--- NOTE | 2021-08-18 09:20 | NUR ---
PATIENT AWAKE. PATIENT TRACH TO VENT. PATIENT 02 SATING AT 94%. NO ACUTE DISTRESS NOTED. SCHEDULED MEDICATION GIVEN. PATIENT HAD 5 ML RESIDUAL. CALL LIGHT WITHIN REACH. ALL SAFETY MEASURES IN PLACE. WILL CONTINUE TO MONITOR.
--- NOTE | 2021-08-18 11:25 | NUR ---
PATIENT AWAKE. PATIENT TRACH TO VENT. PATIENT 02 SATING AT 95%. NO ACUTE DISTRESS NOTED. AT BEDSIDE. CALL LIGHT WITHIN REACH. ALL SAFETY MEASURES IN PLACE. WILL CONTINUE TO MONITOR.
[2021-08-18 12:00] VITALS: BP 127/71
--- NOTE | 2021-08-18 12:53 | NUR ---
DC PLANNING: CLINICAL PACKET FAXED TO [facility] FOR POSSIBLE DC BACK TODAY. D[place]OTA WILL FOLLOW. Addendum: 08/19/21 at 1052 by Aidee Polo CM DC PLANNING: DAKOTA SPOKE WITH THE PATIENTS RATNA BY PHONE. SHE STATES THAT HER BROTHER WHO IS AN MD SPOKE WITH DR LANDEROS REGARDING A DIVERTING COLOSTOMY BECAUSE OF A STAGE 4 ULCER, FAMILY HAS DECIDED NOT TO PROCEED AT THIS TIME. FAMILY IS ALSO REQUESTING THAT THE PATIENT GO [facility] AND STATES THAT HE WAS THERE FOR 14 YEARS. DAKOTA WILL SPEAK [facility] REGARDING TRANSFER, AND WILL FOLLOW FOR NEEDS. Addendum: 08/20/21 at 0907 by Aidee Polo CM DC PLANNING: DAKOTA SPOKE WITH PREMAR FROM [facility] ([phone]), [facility]. DAKOTA WILL FOLLOW UP FOR ROOM ASSIGNMENT AND ACCEPTING MD. Addendum: 08/20/21 at 1110 by Aidee Polo CM DC PLANNING: PATIENT ACCEPTED TO ROOM 318A AT [facility], NUMBER TO CALL REPORT IS [phone], ACCEPTING MD IS DR PURCELL. CCT/RT TRANSPORT ARRANGED WITH [facility], IS/IT PROJECT MANAGER TIME 1300. CM LEFT VM FOR THE PATIENTS CASSY SEGUNDO ENDORSING DC TO [facility] TODAY, DAKOTA ALSO SPOKE WITH THE PATIENTS NURSE ALLEN REGARDING DC. DAKOTA WILL FOLLOW. Addendum: 08/20/21 at 1305 by Aidee Polo CM DC PLANNING: PATIENTS ROOM CHANGED TO 307B AT [facility]. DAKOTA WILL FOLLOW.
--- NOTE | 2021-08-18 13:10 | NUR ---
AIR TRAFFIC COORDINATOR AT BEDSIDE. PATIENT AWAKE. PATIENT TRACH TO VENT. PATIENT 02 SATING AT 95%. NO ACUTE DISTRESS NOTED. CALL LIGHT WITHIN REACH. ALL SAFETY MEASURES IN PLACE. WILL CONTINUE TO MONITOR.
[2021-08-18] MEDS: THERAHONEY GEL 42.5 GM TP SCH (13:23)
[2021-08-18] MEDS: Z-GUARD PASTE TP SCH (13:23)
--- NOTE | 2021-08-18 15:14 | NUR ---
PATIENT SLEEPING. PATIENT TRACH TO VENT. PATIENT 02 SATING AT 95%. NO ACUTE DISTRESS NOTED. CALL LIGHT WITHIN REACH. ALL SAFETY MEASURES IN PLACE. WILL CONTINUE TO MONITOR.
--- NOTE | 2021-08-18 15:17 | NUR ---
WOUND CARE RE-EVALUATION NOTE: NO NEW CHANGE OF CONDITION TO SKIN. PRESSURE INJURY TO SACRALCOCCYX NO CHANGE OF CONDITION -SACRALCOCCYX PRESSURE INJURY STAGE 4 WITH [id number]. WOUND BED PINK,100% GRANULATING, MINIMAL SEROUS DRAINAGE, NO ODOR. BARTOLO-WOUND HEALING THIN SCAR TISSUE WITH MULTIPLE EROSIONS SOME IMPROVING NOTICE. DTI DARK PURPLE COLOR [id number]
[2021-08-18 16:00] VITALS: BP 114/61
--- NOTE | 2021-08-18 17:16 | NUR ---
PATIENT AWAKE. PATIENT TRACH TO VENT. PATIENT 02 SATING AT 95%. NO ACUTE DISTRESS NOTED. CALL LIGHT WITHIN REACH. ALL SAFETY MEASURES IN PLACE. WILL CONTINUE TO MONITOR.
--- NOTE | 2021-08-18 19:10 | NUR ---
ENDORSED TO EPITAXIAL REACTOR OPERATOR NURSE FOR CONTINUITY OF PATIENT CARE. PATIENT STABLE.
[2021-08-18 20:00] VITALS: BP 137/73
[2021-08-18] MEDS: INSULIN LANTUS 100 UNITS/ML 10 ML VIAL SUBQ SCH (21:00)
[2021-08-18] MEDS: SIMVASTATIN 10 MG TAB GT SCH (21:00)
[2021-08-19] VITALS (7 sets, daily range): BP systolic 108–157; BP diastolic 69–85
--- NOTE | 2021-08-19 00:46 | NUR ---
PATIENT AWAKE ALERT X1 HAS TRACH TO VENT PC/AC RATE 12 20I PAP, PEEP 5. SAT 96%. LUNGS DIMINISH ON MONITOR SINUS. TEMP 97.8 HAS G-TUBE GLUCERNA 1.2 60 HOUR. AND WATER FLUSH EVERY SIX HOURS. PATIENT HAS A SUPER PUBIC CATH. DRAINING SEB CLEAR URINE. 2100 BLOOD SUGAR 193 GIVEN HUMALOG LANTUS 15 UNITS. NO DISTRESS NOTED PATIENT HAS STAGE 3 AT SACRUM.
[2021-08-19] MEDS: ALBUTEROL SULFATE/IPRATROPIU 3 ML SOL IH SCH ×3 (01:30→19:55)
[2021-08-19] MEDS: VANCOMYCIN 1,000 MG in DEXTROSE 5% 250 ML IV SCH ×2 (03:00→22:13)
[2021-08-19] MEDS: DILTIAZEM 30 MG TAB PO SCH ×3 (05:00→21:51)
[2021-08-19] MEDS: MEROPENEM 1,000 MG in NACL 0.9% 50 ML IV SCH ×3 (05:00→21:54)
[2021-08-19] MEDS: BLOOD GLUCOSE MONITORING 1 DEV DEV FS SCH ×3 (06:21→18:43)
[2021-08-19] MEDS: INSULIN LISPRO SLIDING SCALE 100 UNITS/ML VIAL SUBQ PRN ×3 (06:22→18:43)
--- NOTE | 2021-08-19 07:30 | NUR ---
RECEIVED REPORT FROM ACADEMIC COMPUTING DIRECTOR NURSE, PT ON TRACH TO VENT, APHASIC, GT IN PLACE WITH FEEDING, SUPRAPUBIC CATH IN PLACE DRAINING TO GRAVITY, LEFT AC 20G PATENT INTACT, INFUSING WELL, INITIAL ASSESSMENT DONE, ALL SAFETY PRECAUTION MET, CALL LIGHT WITHIN REACH, WILL CONTINUE TO MONITOR.
[2021-08-19 08:10] LABS: ANION GAP 13.5 (8-16); CARBON DIOXIDE 25.3 mmol/L (21-32); CREATININE 0.9 mg/dL (0.6-1.3); POTASSIUM 3.8 mmol/L (3.5-5.1)
[2021-08-19] MEDS: bisacodyL 10 MG SUPP RC SCH (08:28)
[2021-08-19] MEDS: ASPIRIN 81 MG TAB.CHEW GT SCH (08:28)
[2021-08-19] MEDS: AMIODARONE 200 MG TAB PO SCH (08:29)
[2021-08-19] MEDS: SENNA 8.6 MG TAB PO SCH (08:29)
[2021-08-19] MEDS: LANSOPRAZOLE 30 MG CAPDR GT SCH (08:29)
[2021-08-19 09:55] LABS: BASOPHILS % (AUTO) 0.4 % (0.0-2.0); EOSINOPHILS # (AUTO) 0.2 K/uL (0-0.4); EOSINOPHILS % (AUTO) 4.2 % (0.0-4.0); HEMATOCRIT 38.7 % (36-52); HEMOGLOBIN 12.9 g/dL (12.0-18.0); LYMPHOCYTES # (AUTO) 0.5 K/uL (2.0-11.5); LYMPHOCYTES % (AUTO) 8.7 % (20.5-51.1); MEAN CORPUSCULAR HEMOGLOBIN 29 pg (27-31); MEAN CORPUSCULAR HGB CONC 33 g/dL (33-37); MEAN CORPUSCULAR VOLUME 87.5 fL (80-94); MONOCYTES # (AUTO) 0.4 K/uL (0.8-1.0); MONOCYTES % (AUTO) 6.4 % (1.7-9.3); NEUTROPHILS # (AUTO) 4.6 K/uL (1.8-7.7); NEUTROPHILS % (AUTO) 80.3 % (42.2-75.2); PLATELET COUNT (AUTO) 292 K/uL (140-450); RED BLOOD CELL COUNT(AUTO) 4.42 MIL/uL (4.20-6.10); RED CELL DISTRIBUTION WIDTH 15.3 % (11.6-13.7); WHITE BLOOD COUNT (AUTO) 5.8 K/uL (4.8-10.8)
[2021-08-19] MEDS: THERAHONEY GEL 42.5 GM TP SCH (13:09)
[2021-08-19] MEDS: Z-GUARD PASTE TP SCH (13:09)
[2021-08-19] MEDS ORDERED: NA P133E3 RC (17:03)
[2021-08-19] MEDS ORDERED: LANS30EC68 GT (17:03)
[2021-08-19] MEDS ORDERED: MERO1VIA15 IV (17:03)
[2021-08-19] MEDS ORDERED: DILT-15 PO (17:03)
[2021-08-19] MEDS ORDERED: AMIO200T10 PO (17:03)
[2021-08-19] MEDS ORDERED: BISA-218 RC (17:03)
[2021-08-19] MEDS ORDERED: VANC1PIG IV (17:03)
[2021-08-19] MEDS ORDERED: LANTUS SUBQ (17:03)
--- NOTE | 2021-08-19 19:40 | NUR ---
ENDORSED PT TO SUPPLIES PACKER NURSE FOR CONTINUOUS CARE
--- NOTE | 2021-08-19 20:00 | NUR ---
RECEIVED REPORT FROM DAY SHIFT NURSE, PT ON BED RESTING WELL, PT NON VERBAL, ON TRACH TO VENT, APHASIC, GT IN PLACE WITH FEEDING, SUPRAPUBIC CATH IN PLACE DRAINING TO GRAVITY, LEFT AC 20G PATENT DRY AND INTACT, INFUSING WELL, INITIAL ASSESSMENT DONE, ALL SAFETY PRECAUTION MET, CALL LIGHT WITHIN REACH, BED IN LOW POSITION AND LOCKED AT ALL TIMES. WILL CONTINUE TO MONITOR.
[2021-08-19] MEDS: SIMVASTATIN 10 MG TAB GT SCH (21:51)
[2021-08-19] MEDS: INSULIN LANTUS 100 UNITS/ML 10 ML VIAL SUBQ SCH (21:53)
[2021-08-20] VITALS: BP 137/75
[2021-08-20] MEDS: ALBUTEROL SULFATE/IPRATROPIU 3 ML SOL IH SCH ×3 (00:41→11:02)
[2021-08-20] MEDS: BLOOD GLUCOSE MONITORING 1 DEV DEV FS SCH ×3 (00:56→12:59)
[2021-08-20 04:00] VITALS: BP 129/81
[2021-08-20] MEDS: DILTIAZEM 30 MG TAB PO SCH ×2 (04:40→13:00)
[2021-08-20] MEDS: MEROPENEM 1,000 MG in NACL 0.9% 50 ML IV SCH ×2 (04:41→13:00)
--- NOTE | 2021-08-20 06:47 | NUR ---
Endorsed the continuity of care to the incoming nurse.
[2021-08-20 07:21] LABS: ANION GAP 11.1 (8-16); CREATININE 0.9 mg/dL (0.6-1.3); POTASSIUM 4.1 mmol/L (3.5-5.1)
[2021-08-20 07:22] LABS: MAGNESIUM 2.3 mg/dL (1.8-2.4); PHOSPHORUS 2.6 mg/dL (2.5-4.9)
[2021-08-20 07:25] LABS: BASOPHILS % (AUTO) 0.2 % (0.0-2.0); EOSINOPHILS # (AUTO) 0.1 K/uL (0-0.4); EOSINOPHILS % (AUTO) 1.5 % (0.0-4.0); HEMATOCRIT 38.4 % (36-52); HEMOGLOBIN 12.8 g/dL (12.0-18.0); LYMPHOCYTES # (AUTO) 0.6 K/uL (2.0-11.5); LYMPHOCYTES % (AUTO) 7.9 % (20.5-51.1); MEAN CORPUSCULAR HEMOGLOBIN 29 pg (27-31); MEAN CORPUSCULAR HGB CONC 33 g/dL (33-37); MEAN CORPUSCULAR VOLUME 87.2 fL (80-94); MONOCYTES # (AUTO) 0.6 K/uL (0.8-1.0); MONOCYTES % (AUTO) 7.6 % (1.7-9.3); NEUTROPHILS # (AUTO) 6.7 K/uL (1.8-7.7); NEUTROPHILS % (AUTO) 82.8 % (42.2-75.2); PLATELET COUNT (AUTO) 336 K/uL (140-450); RED CELL DISTRIBUTION WIDTH 15.4 % (11.6-13.7); WHITE BLOOD COUNT (AUTO) 8.1 K/uL (4.8-10.8)
--- NOTE | 2021-08-20 07:29 | NUR ---
RECEIVED REPORT FROM ELECTRONIC DIE MAKER NURSE FOR CONTINUITY OF CARE
[2021-08-20 08:00] VITALS: BP 124/70
[2021-08-20] MEDS: bisacodyL 10 MG SUPP RC SCH (08:57)
[2021-08-20] MEDS: INSULIN LISPRO SLIDING SCALE 100 UNITS/ML VIAL SUBQ PRN (09:07)
[2021-08-20] MEDS: LANSOPRAZOLE 30 MG CAPDR GT SCH (09:12)
[2021-08-20] MEDS: ASPIRIN 81 MG TAB.CHEW GT SCH (09:12)
[2021-08-20] MEDS: SENNA 8.6 MG TAB PO SCH (09:12)
[2021-08-20] MEDS: AMIODARONE 200 MG TAB PO SCH (09:13)
--- NOTE | 2021-08-20 11:56 | NUR ---
PT CHANGED. PT TOLERATED WELL. NO S/S OF DISTRESS. CALL LIGHT IN REACH. ALL SAFETY MEASURES IN PLACE
[2021-08-20 12:00] VITALS: BP 130/73
[2021-08-20] MEDS: Z-GUARD PASTE TP SCH (13:00)
[2021-08-20] MEDS: THERAHONEY GEL 42.5 GM TP SCH (13:00)
--- NOTE | 2021-08-20 14:05 | NUR ---
PT DISCHARGED WITH [facility] VIA GURNEY. NO S/S OF DISTRESS. PT STABLE. REPORT GIVEN TO SHAHRIAR AT [facility]. IV IN PLACE, SUPRAPUBIC CATHETER IN PLACE AND EMPTIED.
== END 2021-08-20 14:10 | DRG 720 ==
LOC: MED 13:37 → MTU 20:18
PROVIDERS: ADMIT Family Medicine; ATTEND Family Medicine
PROC: 5A1955Z Respiratory Ventilation, Greater than 96 Consecutive Hours (ICD-10-PCS; principal; 2021-08-10)
DX: A41.9 Sepsis, unspecified organism (principal); J96.21 Acute and chronic respiratory failure with hypoxia; G82.50 Quadriplegia, unspecified; E43 Unspecified severe protein-calorie malnutrition; L89.154 Pressure ulcer of sacral region, stage 4; J18.9 Pneumonia, unspecified organism; G93.1 Anoxic brain damage, not elsewhere classified; D68.59 Other primary thrombophilia; D69.6 Thrombocytopenia, unspecified; I48.92 Unspecified atrial flutter; J81.1 Chronic pulmonary edema; E11.9 Type 2 diabetes mellitus without complications; N39.0 Urinary tract infection, site not specified; I10 Essential (primary) hypertension; R13.10 Dysphagia, unspecified; M47.816 Spondylosis without myelopathy or radiculopathy, lumbar region; E86.0 Dehydration; Z20.822 Contact with and (suspected) exposure to COVID-19; K56.41 Fecal impaction; R74.01 Elevation of levels of liver transaminase levels; I48.0 Paroxysmal atrial fibrillation; Z79.01 Long term (current) use of anticoagulants; Z93.0 Tracheostomy status; Z93.1 Gastrostomy status; Z86.73 Personal history of transient ischemic attack (TIA), and cerebral infarction without residual deficits; Z88.8 Allergy status to other drugs, medicaments and biological substances; Z79.899 Other long term (current) drug therapy
CPT/HCPCS: 36415; 71045; 71275; 74018; 80048; 80053; 80170; 80202; 82150; 82948; 83036; 83605; 83690; 83735; 83880; 84100; 84436; 84439; 84443; 84479; 84484; 85025; 85379; 85610; 85730; 87040; 87070; 87075; 87081; 87086; 87186; 87205; 89220; 93005; 94003; 94640; 96361; 96365; 99285; J1580; J1644; J1815; J2185; J3370; J3475; J3490; J7060; Q0092; Q9967